=== PATIENT | female | born 1970 | race Caucasian/White ===

== ENCOUNTER → 2016-08-28 | Outpatient (CLI) | payer OTHER ==
[2016-08-28 15:36] LABS: Basophils # (A) 0.1 k/uL (0-0.2); Basophils % (A) 1 %; CH 32.4; CHCM 33.9; Eosinophils # (A) 0.1 k/uL (0-0.7); Eosinophils % (A) 1 %; HGB 14.6 gm/dL (11.4-16.0); Luc # (Auto) 0.23; Luc % (Auto) 2; Lymphocytes # (A) 2.6 k/uL (1.0-4.8); Lymphocytes % (A) 26 %; MCH 31.8 pg (25.0-35.0); MCHC 33.1 g/dL (31.0-37.0); MCV 96.1 fL (80.0-100.0); Mean Platelet Volume 6.9; Monocytes # (A) 0.5 k/uL (0-1.0); Monocytes % (A) 4 %; Neutrophils # (A) 6.7 k/uL (1.3-7.7); Neutrophils % (A) 66 %; RBC 4.59 m/uL (3.80-5.40); WBC 10.1 k/uL (3.8-10.6)
[2016-08-28 15:42] LABS: C Reactive Protein 9.9 mg/L (<10.0); Rheumatoid Factor, Qnt <9 IU/mL (<12)
[2016-08-28 20:25] LABS: Hemoglobin A1C 5.8 % (4.2-6.1)
[2016-08-28 21:17] LABS: Erythrocyte Sedimentation Rate 18 mm/hr (0-20)
[2016-08-29 02:24] LABS: ANA w/Reflex to Titer NEGATIVE (NEGATIVE)
[2016-08-29 03:42] LABS: Lyme Antibodies Total(IgG/IgM) 0.06 (<0.90)
[2016-08-29 05:34] LABS: Toxoplasma Antibody (IgG) <3.0 IU/mL (<7.2)
[2016-08-29 07:26] LABS: Treponemal Ab Reactive (Non-Reactive)
[2016-08-29 12:21] LABS: HLA B27 NEGATIVE; HLA B27 Comment SEEBELOW
[2016-08-29 13:36] LABS: C-ANCA <1:20 Titer (<1:20); P-ANCA <1:20 Titer (<1:20)
[2016-08-30 08:06] LABS: HIV-1/HIV-2 Ab Screen NONREAC (NON REAC)
[2016-09-02 19:38] LABS: Lysozyme, Serum or Body Fluid 7.8 mcg/mL (5.0-11.0)
== END | disposition home or self-care (01) ==
LOC: LABWHC1 14:59
PROVIDERS: ATTEND Ophthalmology
DX: H20.9 Unspecified iridocyclitis (principal)
CPT/HCPCS: 36415; 82164; 83036; 85025; 85549; 85652; 86038; 86140; 86255; 86431; 86618; 86777; 86778; 86780; 86812; 87389

== ENCOUNTER 2017-11-06 18:55 | Emergency (ER) | payer OTHER ==
[2017-11-06] MEDS ORDERED: traMADol 50 MG STARTER PACK 3 TAB BTL PO STA (21:19)
--- NOTE | 2017-11-06 21:19 | ED ---
Skin/Abscess/FB HPI - General Chief complaint: Skin/Abscess/Foreign Body Stated complaint: Infection in wound/leg swelling Time Seen by Provider: 11/06/17 20:54 Source: patient Mode of arrival: ambulatory Limitations: no limitations - History of Present Illness Initial comments: 's patient is a 47-year-old woman who presents to be evaluated for a left pretibial leg injury that occurred about a month ago. She is concerned that there may be an infection that is developing at the wound and also is concerned because the stitches that were applied have been there for a month now. The patient states she was initially injured in a fall from a ladder. She was seen at [facility] where sutures were placed. She did not follow-up. The patient states that a total of 14 sutures were placed but that her daughter removed 3 of them. Patient denies fever or chills, palpitations chest pain or dyspnea. No leg pain or swelling. There has not really been much drainage. MD complaint: laceration Onset/Timin -: month(s) Tetanus Up to Date: yes Location: LLE Severity scale (1-10): 0 Improves with: none Worsens with: none Associated symptoms: denies other symptoms - Related Data Home Medications Medication Instructions Recorded Confirmed Acetaminophen [Tylenol Extra 1,000 mg PO Q6H PRN 11/06/17 11/06/17 Strength] Naproxen Sodium [Aleve] 440 mg PO BID PRN 11/06/17 11/06/17 Previous Rx's Medication Instructions Recorded Albuterol Inhaler [Ventolin Hfa 1 - 2 puff INHALATION Q6HR PRN #1 11/06/17 Inhaler] inhaler Sulfamethox-Tmp 800-160Mg [Bactrim 1 each PO Q12HR #14 tab 11/06/17 Ds] Allergies Allergy/AdvReac Type Severity Reaction Status Date / Time vancomycin Allergy Rash/Hives Verified 11/06/17 20:45 morphine AdvReac Nausea Verified 11/06/17 20:45 Review of Systems ROS Statement: Those systems with pertinent positive or pertinent negative responses have been documented in the HPI. ROS Other: All systems not noted in ROS Statement are negative. Constitutional: Denies: fever, chills Respiratory: Reports: wheezes. Denies: cough, dyspnea Cardiovascular: Denies: chest pain, palpitations Skin: Reports: as per HPI, change in color Past Medical History Past Medical History: No Reported History History of Any Multi-Drug Resistant Organisms: None Reported Past Surgical History: Breast Surgery, Cholecystectomy, Tubal Ligation Past Psychological History: Anxiety, Depression Smoking Status: Former smoker Past Alcohol Use History: None Reported Past Drug Use History: None Reported General Exam Limitations: no limitations General appearance: alert, in no apparent distress Cardiovascular Exam: Present: regular rate, normal rhythm Extremities exam: Present: other (Patient has an approximately 4-5 cm x 8-10 cm area of eschar where the laceration had occurred. There is a little bit of surrounding erythema but no warmth or any drainage.) Skin exam: Present: warm, dry, intact Course Vital Signs 11/06/17 19:07 Temperature 98.2 F Pulse Rate 98 Respiratory 18 Rate Blood Pressure 119/72 O2 Sat by Pulse 97 Oximetry Medical Decision Making - Medical Decision Making Patient is a 47-year-old woman who presents with concerns that she has had stitches in her leg for a month and also concerned about possible infection. Inspection of the leg does reveal some erythema but there is no warmth there is no purulent drainage, and it appears to be mainly inflammatory in nature. Having said that, patient will be prescribed Bactrim to use should there be any increase in redness, swelling or any purulent drainage or she notes any systemic symptoms including but not limited to fevers or chills, tachycardia etc. I also discussed further wound care. There is a moderate sized eschar that I recommended soaking and seeing if she is able to remove some of this to facilitate healing. I was able to remove 11 sutures, and the patient's daughter had removed 3 so this sounds like it is all the sutures that and placed. Patient also has had some wheezing and is out of her albuterol so this is refilled. Disposition Clinical Impression: Visit for suture removal, Wound infection, COPD (chronic obstructive pulmonary disease) Disposition: HOME SELF-CARE Condition: Good Instructions: Stitches Removal (ED), Wound Infection (ED), COPD (Chronic Obstructive Pulmonary Disease) (ED) Prescriptions: Albuterol Inhaler [Ventolin Hfa Inhaler] 1 - 2 puff INHALATION Q6HR PRN #1 inhaler PRN Reason: Wheezing Sulfamethox-Tmp 800-160Mg [Bactrim Ds] 1 each PO Q12HR #14 tab Is patient prescribed a controlled substance at d/c from ED?: No Referrals: None,Stated [Primary Care Provider] - 1-2 days
[2017-11-06 21:41] VITALS: BP 101/70; PULSE 74; RESP 19; TEMP 98.1
== END 2017-11-06 21:40 | disposition home or self-care (01) ==
LOC: EC 18:55
DX: Z04.1 Encounter for examination and observation following transport accident (principal); T81.4XXA Infection following a procedure, initial encounter; L08.9 Local infection of the skin and subcutaneous tissue, unspecified; J44.9 Chronic obstructive pulmonary disease, unspecified; Z87.891 Personal history of nicotine dependence; Z88.1 Allergy status to other antibiotic agents; Z88.5 Allergy status to narcotic agent
CPT/HCPCS: 99283

== ENCOUNTER 2019-03-30 15:13 | Emergency (ER) | payer OTHER ==
[2019-03-30 15:20] VITALS: TEMP 98.3
[2019-03-30] MEDS ORDERED: IPRATROPIUM-ALBUTEROL 3 ML NEB INHALATION STA (15:42)
--- NOTE | 2019-03-30 16:06 | ED ---
General Adult HPI - General Chief complaint: Upper Respiratory Infection Stated complaint: Cough Time Seen by Provider: 03/30/19 15:31 Source: patient, RN notes reviewed, old records reviewed Mode of arrival: ambulatory Limitations: no limitations - History of Present Illness Initial comments: 48-year-old female patient with past history of COPD presents to ED chief complaint of cough, mild shortness of breath the last 5 days. Patient reports that she believes that she has bronchitis. Patient denies any chest pain. Denies any recent prolonged travel. Denies any pain in legs. Denies a history of prior VTE. Denies any use of exogenous hormone products. Denies any other complaints. Systemic: Pt denies fatigue, fever/chills, rash. Pt denies weakness, night sweats, weight loss. Neuro: Pt denies headache, visual disturbances, syncope or pre-syncope. HEENT: Pt denies ocular discharge or irritation, otalgia, rhinorrhea, pharyngiti s or notable lymphadenopathy. Cardiopulmonary: Pt denies chest pain, heart palpitations, dyspnea on exertion. Abdominal/GI: Pt denies abdominal pain, n/v/d. : Pt denies dysuria, burning w/ urination, frequency/urgency. Denies new onset urinary or bowel incontinence. MSK: Pt denies myalgia, loss of strength or function in extremities. Neuro: Pt denies new onset weakness, paresthesias. - Related Data Home Medications Medication Instructions Recorded Confirmed Ibuprofen [Motrin] 800 mg PO Q8H PRN 12/30/17 03/27/18 Acetaminophen [Tylenol Extra 500 mg PO Q6HR PRN 01/07/18 03/27/18 Strength] Previous Rx's Medication Instructions Recorded Albuterol Inhaler [Ventolin Hfa 1 - 2 puff INHALATION Q6HR PRN #1 11/06/17 Inhaler] inhaler Albuterol Inhaler [Ventolin Hfa 1 - 2 puff INHALATION Q4-6H PRN #1 03/30/19 Inhaler] inhaler Albuterol Nebulized [Ventolin 2.5 mg INHALATION Q4H PRN 10 Days 03/30/19 Nebulized] nebu Azithromycin [Zithromax Z-pack] 0 mg PO DIRECTED #6 tab 03/30/19 predniSONE 50 mg PO DAILY #5 tab 03/30/19 Allergies Allergy/AdvReac Type Severity Reaction Status Date / Time vancomycin Allergy Rash/Hives Verified 03/30/19 15:20 morphine AdvReac Nausea Verified 03/30/19 15:20 Review of Systems ROS Statement: Those systems with pertinent positive or pertinent negative responses have been documented in the HPI. ROS Other: All systems not noted in ROS Statement are negative. Past Medical History Past Medical History: COPD, Skin Disorder Additional Past Medical History / Comment(s): WOUND LT LOWER LEG. History of Any Multi-Drug Resistant Organisms: None Reported Past Surgical History: Breast Surgery, Cholecystectomy, Tubal Ligation Additional Past Surgical History / Comment(s): BREAST BIOPSIES SHIRIN. SHIRIN CATARACTS REMOVED Past Anesthesia/Blood Transfusion Reactions: Family History of Problems w/ Anesthesia, Motion Sickness Additional Past Anesthesia/Blood Transfusion Reaction / Comment(s): SISTER HAD PARALYZED DIAPHRAGM. Past Psychological History: Anxiety, Depression Smoking Status: Current every day smoker Past Alcohol Use History: None Reported Past Drug Use History: Marijuana - Past Family History Mother Family Medical History: Cancer General Exam - General Exam Comments Initial Comments: Constitutional: NAD, AOX3, Pt has pleasant affect. HEENT: NC/AT, trachea midline, neck supple, no lymphadenopathy. Posterior p harynx non erythematous, without exudates. External ears appear normal, without discharge. Mucous membranes moist. Eyes PERRLA, EOM intact. There is no scleral icterus. No pallor noted. Cardiopulmonary: RRR, no murmurs, rubs or gallops, no JVD noted. Mild wheezing noted in anterior lung shaw. No peripheral edema. Abdominal exam: Abdomen soft and non-distended. Abdomen non-tender to palpation in all 4 quadrants. Bowel sounds active in LLQ. No hepatosplenomegaly. No ecchymosis Neuro: CN II-XII grossly intact. No nuchal rigidity. No raccon eyes, no borja sign, no hemotympanum. No cervical spinal tenderness. MSK: No posterior calf tenderness bilaterally, homans sign negative bilaterally. Posterior tibialis and radial pulse +2 bilaterally. Sensation intact in upper and lower extremities. Full active ROM in upper and lower extremities, 5/5 stregnth. Limitations: no limitations Course Vital Signs 03/30/19 03/30/19 03/30/19 15:18 16:33 16:34 Temperature 98.3 F Pulse Rate 111 H 100 78 Respiratory 20 18 Rate Blood Pressure 141/72 122/58 O2 Sat by Pulse 95 96 Oximetry Medical Decision Making - Medical Decision Making 28-year-old female patient past history of COPD presents ED chief complaint one week of cough, mild soreness of breath. Denies any chest pain. Denies any wrist fractures. PE. Denies any prior PE. Physical exam displayed mild wheezing left anterior lung shaw, result of breathing treatment. His x-ray revealed possible early developing pneumonia. Patient was discharged with breathing treatments, steroids, azithromycin. Will follow up with PCP tomorrow. Will return to ER if condition worsens. Case discussed with Dr. Dawson. Disposition Clinical Impression: Pneumonia, COPD (chronic obstructive pulmonary disease) Disposition: HOME SELF-CARE Condition: Stable Instructions (If sedation given, give patient instructions): Community Acquired Pneumonia (ED), COPD (Chronic Obstructive Pulmonary Disease) (ED) Additional Instructions: Follow-up with primary care provider tomorrow. Take medication as directed. Repeat chest x-ray after resolution of pneumonia to ensure that it resolves there is no underlying pathology. Return to ER if condition worsens. Prescriptions: predniSONE 50 mg PO DAILY #5 tab Albuterol Inhaler [Ventolin Hfa Inhaler] 1 - 2 puff INHALATION Q4-6H PRN #1 inhaler PRN Reason: Cough Albuterol Nebulized [Ventolin Nebulized] 2.5 mg INHALATION Q4H PRN 10 Days nebu PRN Reason: Cough Azithromycin [Zithromax Z-pack] 0 mg PO DIRECTED #6 tab Is patient prescribed a controlled substance at d/c from ED?: No Referrals: Chandni Maurice MD [Primary Care Provider] - 1-2 days
--- NOTE | 2019-03-30 16:11 | XR ---
EXAMINATION TYPE: XR chest 2V DATE OF EXAM: 03/30/2019 COMPARISON: 01/10/2009 HISTORY: 48-year-old female with cough TECHNIQUE: PA and lateral views FINDINGS: Heart normal size. Aorta and pulmonary vasculature within normal limits. There is some focal opacity at the right midlung. Mild hyperinflation. No or additional consolidation or pleural effusion. IMPRESSION: 1. Mild hyperinflation may reflect depth of inspiration or underlying emphysema. 2. Focal right midlung density could represent an early pneumonia. 3. Follow-up after treatment to ensure clearance especially if the patient has a smoking history.
[2019-03-30] MEDS ORDERED: AZITHROMYCIN 500 MG TAB PO STA (16:18)
[2019-03-30 16:36] VITALS: BP 122/58; PULSE 78; RESP 18
== END 2019-03-30 16:56 | disposition home or self-care (01) ==
LOC: EC 15:13
DX: J44.0 Chronic obstructive pulmonary disease with (acute) lower respiratory infection (principal); J18.9 Pneumonia, unspecified organism; F17.200 Nicotine dependence, unspecified, uncomplicated; Z88.1 Allergy status to other antibiotic agents; Z88.5 Allergy status to narcotic agent
CPT/HCPCS: 71046; 94640; 99284

== ENCOUNTER → 2019-05-01 | Outpatient (CLI) | payer OTHER ==
--- NOTE | 2019-05-01 13:26 | CT ---
EXAMINATION TYPE: CT chest w con DATE OF EXAM: 05/01/2019 COMPARISON: Chest x-ray March 30, 2019 HISTORY: Abnormal cxr. CT DLP: 267.6 mGycm. Automated Exposure Control for Dose Reduction was Utilized. TECHNIQUE: CT scan of the thorax is performed following with IV Contrast, patient injected with 100 mL of Isovue 300. FINDINGS: LUNGS:, Mild to moderate underlying emphysematous change. No suspicious consolidation. No pleural eff usion or pneumothorax. No suspicious nodules or masses with particular attention to the right mid nori g and area of x-ray concern. MEDIASTINUM: There are no greater than 1 cm hilar or mediastinal lymph nodes. No cardiomegaly or pe ricardial effusion is seen. Coronary artery calcification is present which is noted marked of underly ing coronary artery disease. OTHER: Cholecystectomy clips are noted. Mild multilevel spurring in the spine. Spine is straightened. IMPRESSION: Mild to moderate emphysematous change without residual acute pulmonary process. No suspic ious nodules.
== END | disposition home or self-care (01) ==
LOC: RADCTMAIN 12:36
PROVIDERS: ATTEND Internal Medicine
DX: J43.9 Emphysema, unspecified (principal)
CPT/HCPCS: 71260; Q9967

== ENCOUNTER → 2019-05-14 | Outpatient (CLI) | payer OTHER ==
--- NOTE | 2019-05-14 23:34 | MR ---
EXAMINATION TYPE: MR cervical spine wo con DATE OF EXAM: 05/14/2019 COMPARISON: 11/10/2014 HISTORY: Neck pain into kaela arms Multiplanar multiecho imaging of the cervical spine was performed without contrast. There is some straightening of the cervical vertebra. There is decreased signal and loss of height of the disks at C3-4 and C4-5 and C5-6. There is some fusion of the C6-7 disc. There is spurring of the endplates anteriorly and posteriorly from C3 to C6. Cervical spinal cord shows no edema. There is a mild relative spinal stenosis at C4-5. The canal measures 7 mm. Brainstem appears intact. There are p osterior mild disc herniations at C4-5 and C5-6. I see no focal bone destruction. IMPRESSION: Spondylotic changes at multiple levels. There is 7 mm spinal stenosis at C4-5. Mild posterior disc he rniations at C4-5 and C5-6. No significant change compared to old exam.
== END | disposition home or self-care (01) ==
LOC: RADMRIMAIN 21:52
PROVIDERS: ATTEND Psychiatry & Neurology Neurology
DX: M48.02 Spinal stenosis, cervical region (principal); M50.221 Other cervical disc displacement at C4-C5 level
CPT/HCPCS: 72141

== ENCOUNTER → 2019-06-01 | Outpatient (CLI) | payer OTHER ==
--- NOTE | 2019-06-01 22:40 | MR ---
EXAMINATION TYPE: MR brain wo con DATE OF EXAM: 06/01/2019 COMPARISON: CT brain December 16, 2007 HISTORY: Bilateral occipital neuralgia, hx of head injury TECHNIQUE: Multiplanar, multisequence imaging of the brain and brainstem is performed without IV cont rast. FINDINGS: Diffusion weighted images demonstrate no evidence of a recent infarct or other diffusion abnormality. There is no extraaxial fluid collection or significant white matter signal abnormality. The ventricu lar system and cisternal spaces are normal in size and appearance. The brain volume is age appropria te. T2*weighted images show no suspicious intraparenchymal blood products. Midline structures demonstrate normal morphology. The craniocervical junction appears within normal limits. Normal vascular flow voids are present. Note is made of absent or hypoplastic right A1 segmen t with filling of A2 segment due to patent anterior communicating artery, normal variant. Some artifa ct distortion and anterior aspect of bilateral globes. Visualized paranasal sinuses show mild mucosal thickening of ethmoid sinuses bilaterally most prominent anteriorly otherwise are clear. IMPRESSION: Mild anterior chronic ethmoid sinus disease otherwise fairly unremarkable study.
== END | disposition home or self-care (01) ==
LOC: RADMRIMAIN 16:48
PROVIDERS: ATTEND Psychiatry & Neurology Neurology
DX: M54.81 Occipital neuralgia (principal)
CPT/HCPCS: 70551

== ENCOUNTER → 2019-06-10 | Outpatient (CLI) | payer OTHER ==
--- NOTE | 2019-06-11 16:55 | MM ---
Reason for exam: screening (asymptomatic). Last mammogram was performed 10 years and 4 months ago. History: Excisional biopsy of both breasts, August 07, 2006. Benign excisional biopsy of both breasts, 1991. Physical Findings: A clinical breast exam by your physician is recommended on an annual basis and results should be correlated with mammographic findings. MG Screening Mammo w CAD Bilateral CC and MLO view(s) were taken. Prior study comparison: February 15, 2009, bilateral diagnostic digital mammog. March 07, 2006, bilateral screening mammogram w/CAD. There are scattered fibroglandular densities. No significant changes when compared with prior studies. ASSESSMENT: Benign, BI-RAD 2 RECOMMENDATION: Routine screening mammogram of both breasts in 1 year.
== END | disposition home or self-care (01) ==
LOC: RADMAMWWP 13:50
PROVIDERS: ATTEND Internal Medicine
DX: Z12.31 Encounter for screening mammogram for malignant neoplasm of breast (principal)
CPT/HCPCS: 77067

== ENCOUNTER → 2020-10-19 | Outpatient (CLI) | payer OTHER ==
--- NOTE | 2020-10-20 12:40 | MM ---
Reason for exam: screening (asymptomatic). Last mammogram was performed 1 year and 4 months ago. History: Patient is postmenopausal. Excisional biopsy of both breasts, August 07, 2006. Benign excisional biopsy of both breasts, 1991. Physical Findings: A clinical breast exam by your physician is recommended on an annual basis and results should be correlated with mammographic findings. MG Screening Mammo w CAD Bilateral CC and MLO view(s) were taken. Prior study comparison: June 10, 2019, bilateral MG screening mammo w CAD. February 15, 2009, bilateral diagnostic digital mammog. There are scattered fibroglandular densities. ASSESSMENT: Negative, BI-RAD 1 RECOMMENDATION: Routine screening mammogram of both breasts in 1 year.
== END | disposition home or self-care (01) ==
LOC: RADMAMWWP 13:55
PROVIDERS: ATTEND Internal Medicine
DX: Z12.31 Encounter for screening mammogram for malignant neoplasm of breast (principal); Z78.0 Asymptomatic menopausal state
CPT/HCPCS: 77067

== ENCOUNTER → 2020-12-04 | Outpatient (CLI) | payer OTHER ==
[~2020-12-04] MED LIST: REGADENOSON 0.4 MG/5 ML SYRINGE IV ONE
--- NOTE | 2020-12-04 14:48 | EST ---
EXERCISE STRESS DATE OF SERVICE: AGE: 50 SEX: F HT: 4'10" WT: 150 lbs. PROTOCOL: Lexiscan STAGE: NA DURATION OF EXERCISE: NA HEART RATE REST: 77 BLOOD PRESSURE REST: 128/73 MAXIMUM HEART RATE ACHIEVED: 105 MAXIMUM BLOOD PRESSURE: 132/70 85% MPHR: 144 100% MPHR: 169 METS: NA RESULTS: Baseline rhythm sinus mechanism rate 77, normal axis and intervals, QS in V1 to V2. Baseline blood pressure 128/73 mmHg. Patient received injection of Lexiscan. Electrocardiograph monitoring revealed no evidence of diagnostic ischemic ST deviation. Cardiolite was injected per protocol. CONCLUSION: 1. Nondiagnostic electrocardiograph stress testing. 2. Nuclear images will be reported separately. MMODL / IJN: [id number] /
--- NOTE | 2020-12-04 14:49 | NM ---
EXAMINATION TYPE: NM stress lexiscan cardiolite DATE OF EXAM: 12/04/2020 COMPARISON: NONE HISTORY: 50-year-old female with chest pain TECHNIQUE: After the intravenous administration of 9.8 mCi Tc 99m Sestamibi - Cardiolite resting SPE CT images acquired 67 minutes post injection. The patient received 0.4mg Lexiscan, 25.7 mCi Tc 99m Sestamibi - Stress images obtained [address] injection FINDINGS: Review of stress and rest SPECT images demonstrates fixed perfusion defect along the mid to apical in ferolateral wall. On stress, there is accentuation of this defect extending up to the lateral basal w all. Gated analysis shows decreased augmentation of the lateral wall. Estimated left ventricular ejec tion fraction is borderline diminished at 53%. TID calculated at 1.0, within normal limits. IMPRESSION: 1. 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 3. Borderline diminished LVEF of 53%.
== END | disposition home or self-care (01) ==
LOC: RADNMMAIN 08:07
PROVIDERS: ATTEND Internal Medicine
DX: R07.9 Chest pain, unspecified (principal)
CPT/HCPCS: 93017; 78452; A9500

== ENCOUNTER → 2021-02-05 | Outpatient (CLI) | payer OTHER ==
[2021-02-05 15:22] LABS: HCT 47.8 % (37.2-46.3); HGB 15.4 g/dL (12.0-15.0); MCH 32.2 pg (27.0-32.0); MCHC 32.2 g/dL (32.0-37.0); MCV 99.8 fL (80.0-97.0); Mean Platelet Volume 10.2 fL (9.5-12.2); Platelet Count 237 X 10*3/uL (140-440); RBC 4.79 X 10*6/uL (4.10-5.20); RDW 13.7 % (11.5-14.5); WBC 8.69 X 10*3/uL (4.50-10.00)
[2021-02-05 15:58] LABS: African American GFR (CKD) 112.4 (60.0-200.0); Anion Gap 11.8 mmol/L (4.00-12.00); Blood Urea Nitrogen 15.4 mg/dL (9.0-27.0); Carbon Dioxide 26.3 mmol/L (21.6-31.8); Chol/HDL Ratio 4.14 Ratio; HDL Cholesterol 48.5 mg/dL (40.00-60.00); LDL Cholesterol,Calculated 131.9 mg/dL (0.0-131.0); Potassium 4.8 mmol/L (3.5-5.5); VLDL Calculation 20.6 mg/dL (5.00-40.00)
== END | disposition home or self-care (01) ==
LOC: LABWHC1 10:21
PROVIDERS: ATTEND Internal Medicine Cardiovascular Disease
DX: E78.2 Mixed hyperlipidemia (principal)
CPT/HCPCS: 36415; 80051; 80061; 82565; 84450; 84460; 84520; 85027

== ENCOUNTER 2021-02-08 11:04 | Day surgery (SDC) | payer OTHER ==
[2021-02-06 11:41] VITALS: BMI 31.7
[~2021-02-08 11:04] MED LIST changes: +ALPRAZolam 0.25 MG TAB PO PRN; +ALPRAZolam 0.5 MG TAB PO PRN; +ASPIRIN 325 MG TAB PO STA; +ATORVASTATIN 80 MG TAB PO STA; +NITROGLYCERIN SL TABS 0.4 MG TAB SUBLINGUAL PRN; -REGADENOSON 0.4 MG/5 ML SYRINGE IV ONE; +SODIUM CHLORIDE 0.9% 1,000 ML in EMPTY BAG 1 BAG IV SCH
[2021-02-08] MEDS ORDERED: fentaNYL (PF) 50 MCG/ML 2 ML AMP ONE (11:46)
[2021-02-08] MEDS: fentaNYL (PF) 50 MCG/ML 2 ML AMP IV ONE ×2 (11:55→12:03)
[2021-02-08] MEDS ORDERED: MIDAZOLAM 2 MG/2 ML VIAL IV ONE (11:55)
[2021-02-08] MEDS ORDERED: LIDOCAINE 1% INJ 10MG/ML (20 ML MDV) SQ ONE (11:59)
[2021-02-08] MEDS ORDERED: HEPARIN SODIUM 1,000 UN/ML (10ML VL) ONE (12:08)
[2021-02-08] MEDS ORDERED: IOPAMIDOL-370 125ML BTL INJ ONE (12:19)
[2021-02-08] MEDS ORDERED: RX INFO: IV CONTRAST WAS GIVEN 1 EACH MISC MISCELLANE PRN (12:40)
[2021-02-08] MEDS ORDERED: SODIUM CHLORIDE 0.9% 1,000 ML IV SCH (12:45)
--- NOTE | 2021-02-08 13:30 | CC ---
CARDIAC CATHETERIZATION REPORT INDICATION: Chest pain with abnormal stress test showing partial anterolateral reversible perfusion defect. PROCEDURE NOTE: After obtaining informed consent, left heart catheterization and coronary angiogram were performed via the right femoral artery using standard Villa catheters. The patient tolerated the procedure well without any obvious immediate complications. A femoral angiogram was performed was made for manual hemostasis, as the site of entry is below the bifurcation. Patient received moderate conscious sedation. Total sedation time was 20 minutes. FINDINGS: HEMODYNAMICS: Left ventricular end-diastolic pressure is 8 mm. There is no significant gradient across the aortic valve. LEFT VENTRICULOGRAM: Left ventriculogram was not performed. ANGIOGRAPHIC DATA Left main coronary artery. Left main coronary artery is a normal-sized vessel and is free of stenosis. It divides into left anterior descending coronary artery and circumflex coronary artery. Circumflex coronary artery is totally occluded proximally with extensive collaterals from the distal right coronary artery. LAD shows mild nonobstructive disease. Right coronary artery is a large dominant vessel. There is a 40% stenosis involving distal right coronary artery. CONCLUSION: 1. Chronically occluded proximal circumflex coronary artery with extensive collaterals coming from the distal RCA. 2. Moderate disease involving right coronary artery. PLAN: Patient will be treated with optimal medical therapy with aspirin, nitrates, beta blockers, statin, and patient was advised to quit smoking. Will follow the patient closely clinically. She does not require percutaneous revascularization at this time. MMODL / IJN: [id number] /
[2021-02-08 19:28] VITALS: BP 114/73; PULSE 89; RESP 16; TEMP 98.3
== END 2021-02-08 19:53 ==
LOC: CATHCVL 11:04 → 6NMEDSUR 12:18 → CATHCVL 19:53
PROVIDERS: ATTEND Internal Medicine Cardiovascular Disease
DX: I25.110 Atherosclerotic heart disease of native coronary artery with unstable angina pectoris (principal); I25.82 Chronic total occlusion of coronary artery; R94.39 Abnormal result of other cardiovascular function study; F17.210 Nicotine dependence, cigarettes, uncomplicated; Z20.822 Contact with and (suspected) exposure to COVID-19; Z82.49 Family history of ischemic heart disease and other diseases of the circulatory system; Z90.49 Acquired absence of other specified parts of digestive tract; J44.9 Chronic obstructive pulmonary disease, unspecified; M19.90 Unspecified osteoarthritis, unspecified site; Z79.82 Long term (current) use of aspirin; Z79.899 Other long term (current) drug therapy; Z88.1 Allergy status to other antibiotic agents
CPT/HCPCS: 93458; 87635; C1769 ×2; C1894; J2250; J2001; J3010; Q9967

== ENCOUNTER → 2021-05-23 | Outpatient (CLI) | payer OTHER ==
--- NOTE | 2021-05-23 18:47 | XR ---
EXAMINATION TYPE: XR chest 2V DATE OF EXAM: 05/23/2021 COMPARISON: 03/30/2019 HISTORY: Pain TECHNIQUE: 2 views FINDINGS: Heart is normal. Lungs are clear of consolidation. There are no hilar masses. Costophrenic angles are clear. IMPRESSION: No active cardiopulmonary disease. No adverse change.
== END | disposition home or self-care (01) ==
LOC: RADXRMAIN 17:40
PROVIDERS: ATTEND Internal Medicine
DX: R07.9 Chest pain, unspecified (principal)
CPT/HCPCS: 71046

== ENCOUNTER 2021-12-01 16:14 | Inpatient (IN) | payer OTHER ==
[2021-12-01] MEDS ORDERED: IPRATROPIUM-ALBUTEROL 3 ML NEB INHALATION STA (16:22)
[2021-12-01 17:05] LABS: Basophils # (A) 0.1 k/uL (0-0.2); Basophils % (A) 1 %; Eosinophils # (A) 0.1 k/uL (0-0.7); Eosinophils % (A) 1 %; HCT 46.2 % (34.0-46.0); Hypochromasia Slight; Lymphocytes # (A) 1.3 k/uL (1.0-4.8); Lymphocytes % (A) 15 %; MCHC 32.6 g/dL (31.0-37.0); MCV 98.2 fL (80.0-100.0); Mean Platelet Volume 7.7; Monocytes # (A) 0.5 k/uL (0-1.0); Monocytes % (A) 7 %; Neutrophils # (A) 6.2 k/uL (1.3-7.7); Neutrophils % (A) 74 %; Platelet Count 278 k/uL (150-450); RDW 14.1 % (11.5-15.5); WBC 8.4 k/uL (3.8-10.6)
--- NOTE | 2021-12-01 17:06 | ED ---
SOB HPI - General Chief Complaint: Shortness of Breath Stated Complaint: CALIXTO Time Seen by Provider: 12/01/21 16:20 Source: patient Mode of arrival: ambulatory Limitations: no limitations - History of Present Illness Initial Comments: 51-year-old female past history of COPD on home oxygen, coronary artery disease without stenting resents the emergency room with shortness of breath for the past 4 days. States that her shortness of breath is exertional. Admits to green sputum production. No sick contacts. She denies chest pain. No fevers. Has been using her inhaler and nebulizer at home at least every 8 hours without any improvement in her symptoms. No nausea, vomiting or diarrhea. No other alleviating, precipitating or modifying factors - Related Data Home Medications Medication Instructions Recorded Confirmed Acetaminophen-Codeine 300-30mg 1 tab PO BID PRN 12/01/21 12/01/21 [Tylenol w/codeine #3] Albuterol Inhaler [Ventolin Hfa 2 puff INHALATION RT-Q6H PRN 12/01/21 12/01/21 Inhaler] Previous Rx's Medication Instructions Recorded Aspirin 81 mg PO DAILY tab 12/05/21 Atorvastatin [Lipitor] 40 mg PO DAILY tab 12/05/21 Cefdinir 300 mg PO Q12HR 7 Days #14 cap 12/05/21 Ipratropium-Albuterol Nebulize 3 ml INHALATION RT-QID each 12/05/21 [Duoneb 0.5 mg-3 mg/3 ml Soln] predniSONE 0 mg PO DIRECTED 12 Days #30 tab 12/05/21 Allergies Allergy/AdvReac Type Severity Reaction Status Date / Time vancomycin Allergy Rash/Hives Verified 12/01/21 18:15 morphine AdvReac Nausea Verified 12/01/21 18:15 Review of Systems ROS Statement: Those systems with pertinent positive or pertinent negative responses have been documented in the HPI. ROS Other: All systems not noted in ROS Statement are negative. Past Medical History Past Medical History: COPD, Skin Disorder Additional Past Medical History / Comment(s): WOUND LT LOWER LEG. History of Any Multi-Drug Resistant Organisms: None Reported Past Surgical History: Breast Surgery, Cholecystectomy, Tubal Ligation Additional Past Surgical History / Comment(s): BREAST BIOPSIES SHIRIN. SHIRIN CATARACTS REMOVED Past Anesthesia/Blood Transfusion Reactions: Family History of Problems w/ Anesthesia, Motion Sickness Additional Past Anesthesia/Blood Transfusion Reaction / Comment(s): SISTER HAD PARALYZED DIAPHRAGM. Past Psychological History: Anxiety, Depression Smoking Status: Former smoker Past Alcohol Use History: None Reported Past Drug Use History: Marijuana - Past Family History Mother Family Medical History: Cancer Father Family Medical History: Myocardial Infarction ([place]) General Exam Limitations: no limitations General appearance: alert, in no apparent distress Head exam: Present: atraumatic, normocephalic, normal inspection Eye exam: Present: normal appearance, PERRL, EOMI. Absent: scleral icterus, conjunctival injection, periorbital swelling ENT exam: Present: normal exam, mucous membranes moist Neck exam: Present: normal inspection. Absent: tenderness, meningismus, lymphadenopathy Respiratory exam: Present: wheezes, accessory muscle use, decreased breath sounds, other (tachypnia). Absent: respiratory distress, rales, rhonchi, stridor Cardiovascular Exam: Present: normal rhythm, tachycardia, normal heart sounds. Absent: systolic murmur, diastolic murmur, rubs, gallop, clicks GI/Abdominal exam: Present: soft, normal bowel sounds. Absent: distended, tenderness, guarding, rebound, rigid Extremities exam: Present: normal inspection, full ROM, normal capillary refill. Absent: tenderness, pedal edema, joint swelling, calf tenderness Back exam: Present: normal inspection Neurological exam: Present: alert, oriented X3, CN II-XII intact Psychiatric exam: Present: normal affect, normal mood Skin exam: Present: warm, dry, intact, normal color. Absent: rash Course Vital Signs 12/01/21 12/01/21 12/01/21 16:15 16:20 17:19 Temperature 98.3 F Pulse Rate 133 H 112 H Respiratory 28 H Rate Blood Pressure 110/55 O2 Sat by Pulse 86 L 96 Oximetry 12/01/21 12/01/21 12/01/21 17:30 17:55 19:54 Temperature Pulse Rate 115 H 109 H 110 H Respiratory 20 18 Rate Blood Pressure 117/66 123/60 O2 Sat by Pulse 96 97 Oximetry Medical Decision Making - Medical Decision Making Upon arrival patient was placed into room 3. She is hypoxic with an oxygen saturation of 86%. She is placed on 4 L. Placed on continuous pulse ox and cardiac monitoring. 12-lead EKG demonstrates a sinus tach. Laboratory studies are conducted. Patient given a DuoNeb breathing treatment and 125 mg Solu- Medrol. Laboratory studies reveal a mildly elevated troponin of 0.050. Covid and influenza are negative. Chest x-ray does demonstrate mild interstitial pneumonia. This is followed by a CT of the chest either elevated troponin, tachycardia and hypoxia which does not demonstrate PE. Patient is given a dose of Rocephin and azithromycin. Recommended admission for her hypoxia for which the patient did agree to. Spoke with Dr. Alves who is covering for Dr. Maurice. - Lab Data Result diagrams: 12/04/21 07:51 12/04/21 07:51 Lab Results 12/01/21 12/01/21 12/01/21 Range/Units 16:52 16:52 16:52 WBC 8.4 (3.8-10.6) k/uL RBC 4.70 (3.80-5.40) m/uL Hgb 15.0 (11.4-16.0) gm/dL Hct 46.2 H (34.0-46.0) % MCV 98.2 (80.0-100.0) fL MCH 32.0 (25.0-35.0) pg MCHC 32.6 (31.0-37.0) g/dL RDW 14.1 (11.5-15.5) % Plt Count 278 (150-450) k/uL MPV 7.7 Neutrophils % 74 % Lymphocytes % 15 % Monocytes % 7 % Eosinophils % 1 % Basophils % 1 % Neutrophils # 6.2 (1.3-7.7) k/uL Lymphocytes # 1.3 (1.0-4.8) k/uL Monocytes # 0.5 (0-1.0) k/uL Eosinophils # 0.1 (0-0.7) k/uL Basophils # 0.1 (0-0.2) k/uL Hypochromasia Slight PT 10.3 (9.0-12.0) sec INR 0.9 (<1.2) APTT 23.6 (22.0-30.0) sec Sodium 138 (137-145) mmol/L Potassium 4.0 (3.5-5.1) mmol/L Chloride 102 (98-107) mmol/L Carbon Dioxide 30 (22-30) mmol/L Anion Gap 6 mmol/L BUN 12 (7-17) mg/dL Creatinine 0.56 (0.52-1.04) mg/dL Est GFR (CKD-EPI)AfAm >90 (>60 ml/min/1.73 sqM) Est GFR (CKD-EPI)NonAf >90 (>60 ml/min/1.73 sqM) Glucose 141 H (74-99) mg/dL Plasma Lactic Acid Kuldip (0.7-2.0) mmol/L Calcium 9.0 (8.4-10.2) mg/dL Magnesium 1.7 (1.6-2.3) mg/dL Total Bilirubin 0.5 (0.2-1.3) mg/dL AST 18 (14-36) U/L ALT 18 (4-34) U/L Alkaline Phosphatase 109 (38-126) U/L Troponin I (0.000-0.034) ng/mL NT-Pro-B Natriuret Pep pg/mL Total Protein 6.7 (6.3-8.2) g/dL Albumin 3.6 (3.5-5.0) g/dL Coronavirus (PCR) (Not Detectd) Influenza Type A RNA (Not Detectd) Influenza Type B (PCR) (Not Detectd) 12/01/21 12/01/21 12/01/21 Range/Units 16:52 16:52 16:52 WBC (3.8-10.6) k/uL RBC (3.80-5.40) m/uL Hgb (11.4-16.0) gm/dL Hct (34.0-46.0) % MCV (80.0-100.0) fL MCH (25.0-35.0) pg MCHC (31.0-37.0) g/dL RDW (11.5-15.5) % Plt Count (150-450) k/uL MPV Neutrophils % % Lymphocytes % % Monocytes % % Eosinophils % % Basophils % % Neutrophils # (1.3-7.7) k/uL Lymphocytes # (1.0-4.8) k/uL Monocytes # (0-1.0) k/uL Eosinophils # (0-0.7) k/uL Basophils # (0-0.2) k/uL Hypochromasia PT (9.0-12.0) sec INR (<1.2) APTT (22.0-30.0) sec Sodium (137-145) mmol/L Potassium (3.5-5.1) mmol/L Chloride (98-107) mmol/L Carbon Dioxide (22-30) mmol/L Anion Gap mmol/L BUN (7-17) mg/dL Creatinine (0.52-1.04) mg/dL Est GFR (CKD-EPI)AfAm (>60 ml/min/1.73 sqM) Est GFR (CKD-EPI)NonAf (>60 ml/min/1.73 sqM) Glucose (74-99) mg/dL Plasma Lactic Acid Kuldip 1.0 (0.7-2.0) mmol/L Calcium (8.4-10.2) mg/dL Magnesium (1.6-2.3) mg/dL Total Bilirubin (0.2-1.3) mg/dL AST (14-36) U/L ALT (4-34) U/L Alkaline Phosphatase (38-126) U/L Troponin I 0.050 H* (0.000-0.034) ng/mL NT-Pro-B Natriuret Pep 1430 pg/mL Total Protein (6.3-8.2) g/dL Albumin (3.5-5.0) g/dL Coronavirus (PCR) (Not Detectd) Influenza Type A RNA (Not Detectd) Influenza Type B (PCR) (Not Detectd) 12/01/21 12/01/21 Range/Units 16:52 16:52 WBC (3.8-10.6) k/uL RBC (3.80-5.40) m/uL Hgb (11.4-16.0) gm/dL Hct (34.0-46.0) % MCV (80.0-100.0) fL MCH (25.0-35.0) pg MCHC (31.0-37.0) g/dL RDW (11.5-15.5) % Plt Count (150-450) k/uL MPV Neutrophils % % Lymphocytes % % Monocytes % % Eosinophils % % Basophils % % Neutrophils # (1.3-7.7) k/uL Lymphocytes # (1.0-4.8) k/uL Monocytes # (0-1.0) k/uL Eosinophils # (0-0.7) k/uL Basophils # (0-0.2) k/uL Hypochromasia PT (9.0-12.0) sec INR (<1.2) APTT (22.0-30.0) sec Sodium (137-145) mmol/L Potassium (3.5-5.1) mmol/L Chloride (98-107) mmol/L Carbon Dioxide (22-30) mmol/L Anion Gap mmol/L BUN (7-17) mg/dL Creatinine (0.52-1.04) mg/dL Est GFR (CKD-EPI)AfAm (>60 ml/min/1.73 sqM) Est GFR (CKD-EPI)NonAf (>60 ml/min/1.73 sqM) Glucose (74-99) mg/dL Plasma Lactic Acid Kuldip (0.7-2.0) mmol/L Calcium (8.4-10.2) mg/dL Magnesium (1.6-2.3) mg/dL Total Bilirubin (0.2-1.3) mg/dL AST (14-36) U/L ALT (4-34) U/L Alkaline Phosphatase (38-126) U/L Troponin I (0.000-0.034) ng/mL NT-Pro-B Natriuret Pep pg/mL Total Protein (6.3-8.2) g/dL Albumin (3.5-5.0) g/dL Coronavirus (PCR) Not Detected (Not Detectd) Influenza Type A RNA Not Detected (Not Detectd) Influenza Type B (PCR) Not Detected (Not Detectd) - EKG Data EKG Comments: EKG demonstrates sinus tachycardia with a rate of 118. AR interval 141. Dressing E4. QTC of 376. No acute ST segment elevation or depressions Disposition Clinical Impression: Elevated troponin, Tachycardia, COPD exacerbation, Hypoxia, CAP (community acq uired pneumonia) Disposition: ADMITTED IP TO THIS HOSP Condition: Stable Is patient prescribed a controlled substance at d/c from ED?: No Time of Disposition: 19:06 Decision to Admit Reason: Admit from EC Decision Date: 12/01/21 Decision Time: 19:06
[2021-12-01 17:15] LABS: INR 0.9 (<1.2); Partial Thromboplastin Time 23.6 sec (22.0-30.0); Prothrombin Time 10.3 sec (9.0-12.0)
[2021-12-01 17:17] LABS: ALT 18 U/L (4-34); AST 18 U/L (14-36); African American GFR (CKD) >90 (>60 ml/min/1.73 sqM); Albumin 3.6 g/dL (3.5-5.0); Alkaline Phosphatase 109 U/L (38-126); Anion Gap 6 mmol/L; Blood Urea Nitrogen 12 mg/dL (7-17); Carbon Dioxide 30 mmol/L (22-30); Chloride 102 mmol/L (98-107); Glucose 141 mg/dL (74-99); Magnesium 1.7 mg/dL (1.6-2.3); Non-African American GFR(CKD) >90 (>60 ml/min/1.73 sqM); Sodium 138 mmol/L (137-145); Total Bilirubin 0.5 mg/dL (0.2-1.3); Total Protein 6.7 g/dL (6.3-8.2)
--- NOTE | 2021-12-01 17:17 | XR ---
EXAMINATION TYPE: XR chest 2V DATE OF EXAM: 12/01/2021 COMPARISON: NONE HISTORY: Difficulty breathing TECHNIQUE: 2 views FINDINGS: Heart is normal. There is some coarsening of interstitial markings in the lower lung shaw . There are no hilar masses. Bony thorax is intact. IMPRESSION: There is some mild interstitial pneumonia in the lower lung shaw which appears new comp ared to old exam. Normal heart..
[2021-12-01] MEDS ORDERED: ACETAMINOPHEN TAB 500 MG TAB PO STA (17:38)
--- NOTE | 2021-12-01 18:53 | CT ---
EXAMINATION TYPE: CT chest angio for PE DATE OF EXAM: 12/01/2021 COMPARISON: 05/01/2019 HISTORY: SOB x few days CT DLP: 373.2 mGycm Automated exposure control for dose reduction was used. CONTRAST: Performed with IV Contrast, patient injected with 90 mL of Isovue 370. There are Three-D postprocessed images. There are some coarse reticular interstitial and nodular infiltrate in the mid and lower lung shaw. This is more noticeable in the lingula left upper lobe. Heart size is normal. No pericardial effusio n. There is no mediastinal adenopathy. Thoracic aorta is intact. No aneurysm. There is no evidence of filling defect in the pulmonary arteries. No pleural effusion. Thoracic spine is intact. No compression fracture. IMPRESSION: No evidence of pulmonary embolism. No aortic aneurysm or dissection. Patchy reticular nodular pulmonary infiltrates which are new compared to old exam. This is consistent with inflammatory disease.
[2021-12-01] MEDS ORDERED: cefTRIAXone IN SWFI 1,000 MG/10 ML SYRINGE IVP STA (19:03)
[2021-12-01] MEDS ORDERED: AZITHROMYCIN 500 MG in SODIUM CHLORIDE 0.9% 250 ML IVPB STA (19:04)
[2021-12-01] MEDS ORDERED: methylPREDNISolone SOD SUCCI 125 MG/2 ML VIAL IV STA (19:08)
[2021-12-01] MEDS ORDERED: NALOXONE 0.4 MG/ML 1 ML VIAL IV PRN (19:09)
[2021-12-01] MEDS ORDERED: IBUPROFEN 400 MG TAB PO PRN (19:09)
[2021-12-01] MEDS ORDERED: IPRATROPIUM-ALBUTEROL 3 ML NEB INHALATION PRN (19:35)
[2021-12-01] MEDS ORDERED: IPRATROPIUM-ALBUTEROL 3 ML NEB INHALATION SCH (20:00)
[2021-12-01] MEDS: IPRATROPIUM-ALBUTEROL 3 ML NEB INHALATION SCH (20:05)
[2021-12-01] MEDS ORDERED: Acetaminophen-Codeine 300-30mg TAB PO PRN (22:28)
[2021-12-01] MEDS: methylPREDNISolone SOD SUCCI 40 MG/ML 1 ML VIAL IV SCH (23:44)
[2021-12-02 06:11] LABS: Glucose,Whole Blood 173 mg/dL (70-110)
[2021-12-02] MEDS: IPRATROPIUM-ALBUTEROL 3 ML NEB INHALATION SCH ×4 (07:55→19:37)
[2021-12-02 07:58] LABS: Basophils % (A) 0 %; Eosinophils % (A) 0 %; HGB 15.7 gm/dL (11.4-16.0); Hypochromasia Moderate; Lymphocytes # (A) 0.6 k/uL (1.0-4.8); Lymphocytes % (A) 8 %; MCH 31.6 pg (25.0-35.0); MCHC 31.4 g/dL (31.0-37.0); MCV 100.5 fL (80.0-100.0); Macrocytosis Slight; Mean Platelet Volume 7.2; Monocytes # (A) 0.2 k/uL (0-1.0); Monocytes % (A) 2 %; Neutrophils # (A) 6.1 k/uL (1.3-7.7); Neutrophils % (A) 88 %; Platelet Count 282 k/uL (150-450); RBC 4.97 m/uL (3.80-5.40); RDW 13.9 % (11.5-15.5)
[2021-12-02 08:25] LABS: African American GFR (CKD) >90 (>60 ml/min/1.73 sqM); Anion Gap 7 mmol/L; Blood Urea Nitrogen 14 mg/dL (7-17); Calcium 8.9 mg/dL (8.4-10.2); Carbon Dioxide 33 mmol/L (22-30); Chloride 101 mmol/L (98-107); Glucose 153 mg/dL (74-99); Non-African American GFR(CKD) >90 (>60 ml/min/1.73 sqM); Sodium 141 mmol/L (137-145)
[2021-12-02 08:29] LABS: Potassium 5.1 mmol/L (3.5-5.1)
[2021-12-02] MEDS: ACETAMINOPHEN TAB 325 MG TAB PO PRN (08:58)
[2021-12-02] MEDS: methylPREDNISolone SOD SUCCI 40 MG/ML 1 ML VIAL IV SCH ×2 (08:59→16:34)
[2021-12-02] MEDS: AZITHROMYCIN 500 MG TAB PO SCH (11:32)
[2021-12-02 11:48] LABS: Glucose,Whole Blood 191 mg/dL (70-110)
--- NOTE | 2021-12-02 12:30 | P.CNPUL ---
History of Present Illness Consult date: 12/02/21 Requesting physician: Maria E Berry Reason for consult: dyspnea Chief complaint: Shortness of breath History of present illness: 51-year-old white female patient with past medical history of COPD, former smoker, anxiety, depression, coronary artery disease without stenting who presented to the emergency department on 12/01/2021 with 4 day history of worsening shortness of breath. Her shortness of breath was mainly exertional, she reports cough and some green sputum production. She denies any sick contacts, she denies any chest discomfort, no fever or chills. Patient has been using her inhaler and nebulizer at home without any improvement. Chest x-ray in the emergency department showed mild interstitial pneumonia in the lower shaw. Patient tested negative for COVID-19, influenza A and B, white blood cell count was normal at 8.4, hemoglobin was 15.0, coagulation profile was unremarkable, electrolyte and renal profile were within normal limits, patient had a mild troponin leak at 0.050, 0.036, and 0.020, proBNP was 1430. Her pro-calcitonin level resulted at 0.23. Patient was started on empiric antibiotics with azithromycin and Rocephin in the emergency department, she was placed on breathing treatments and IV steroids. She is satting 95% on 3 L, she is afebrile with stable vital signs. CTA chest showed no evidence of pulmonary embolism, no aortic aneurysm or dissection, patchy reticular nodular pulmonary infiltrates. Review of Systems All systems: negative Constitutional: Denies chills, Denies fever Eyes: denies blurred vision, denies pain Ears, nose, mouth and throat: Denies headache, Denies sore throat Cardiovascular: Denies chest pain, Denies shortness of breath Respiratory: Reports cough with sputum, Reports dyspnea, Denies cough Gastrointestinal: Denies abdominal pain, Denies diarrhea, Denies nausea, Denies vomiting Genitourinary: Denies dysuria, Denies hematuria Musculoskeletal: Denies myalgias Integumentary: Denies pruritus, Denies rash Neurological: Denies numbness, Denies weakness Psychiatric: Denies anxiety, Denies depression Endocrine: Denies fatigue, Denies weight change Past Medical History Past Medical History: COPD, Skin Disorder Additional Past Medical History / Comment(s): WOUND LT LOWER LEG. History of Any Multi-Drug Resistant Organisms: None Reported Past Surgical History: Breast Surgery, Cholecystectomy, Tubal Ligation Additional Past Surgical History / Comment(s): BREAST BIOPSIES SHIRIN. SHIRIN CATARACTS REMOVED Past Anesthesia/Blood Transfusion Reactions: Family History of Problems w/ Anesthesia, Motion Sickness Additional Past Anesthesia/Blood Transfusion Reaction / Comment(s): SISTER HAD PARALYZED DIAPHRAGM. Past Psychological History: Anxiety, Depression Smoking Status: Former smoker Past Alcohol Use History: None Reported Past Drug Use History: Marijuana - Past Family History Mother Family Medical History: Cancer Father Family Medical History: Myocardial Infarction ([place]) Medications and Allergies Home Medications Medication Instructions Recorded Confirmed Type Acetaminophen-Codeine 300-30mg 1 tab PO BID PRN 12/01/21 12/01/21 History [Tylenol w/codeine #3] Albuterol Inhaler [Ventolin Hfa 2 puff INHALATION RT-Q6H PRN 12/01/21 12/01/21 History Inhaler] Allergies Allergy/AdvReac Type Severity Reaction Status Date / Time vancomycin Allergy Rash/Hives Verified 12/01/21 18:15 morphine AdvReac Nausea Verified 12/01/21 18:15 Physical Exam Vitals: Vital Signs Temp Pulse Pulse Resp BP BP Pulse Ox 12/02/21 11:44 98.3 F 87 99/64 95 12/02/21 11:39 84 12/02/21 11:26 84 12/02/21 08:08 82 12/02/21 07:57 97.8 F 99 16 99/61 97 12/02/21 07:55 80 12/02/21 03:44 97.8 F 100 22 113/74 95 12/01/21 23:41 97.8 F 98 18 108/68 100 12/01/21 21:48 107/70 12/01/21 20:55 97.6 F 106 H 22 91/60 97 12/01/21 19:54 110 H 18 123/60 97 12/01/21 17:55 109 H 20 117/66 96 12/01/21 17:30 115 H 12/01/21 17:19 112 H 12/01/21 16:20 96 12/01/21 16:15 98.3 F 133 H 28 H 110/55 86 L Intake and Output 12/01/21 12/02/21 12/02/21 22:59 06:59 14:59 Intake Total 490 Balance 490 Intake: Intake, IV Titration 250 Amount Azithromycin 500 mg In 250 Sodium Chloride 0.9% 250 ml @ 250 mls/hr IVPB ONCE STA Rx#:[id number] Oral 240 Other: # Voids 2 Weight 63.503 kg 64.5 kg GENERAL EXAM: Alert, very pleasant, 51-year-old white female, on 3 L of oxygen pulse ox is 97% comfortable in no apparent distress. HEAD: Normocephalic/atraumatic. EYES: Normal reaction of pupils, equal size. Conjunctiva pink, sclera white. NOSE: Clear with pink turbinates. THROAT: No erythema or exudates. NECK: No masses, no JVD, no thyroid enlargement, no adenopathy. CHEST: No chest wall deformity. Symmetrical expansion. LUNGS: Equal air entry with diffuse rhonchi CVS: Regular rate and rhythm, normal S1 and S2, no gallops, no murmurs, no rubs ABDOMEN: Soft, nontender. No hepatosplenomegaly, normal bowel sounds, no guarding or rigidity. EXTREMITIES: No clubbing, no edema, no cyanosis, 2+ pulses and upper and lower extremities. MUSCULOSKELETAL: Muscle strength and tone normal. SPINE: No scoliosis or deformity SKIN: No rashes CENTRAL NERVOUS SYSTEM: Alert and oriented -3. No focal deficits, tone is normal in all 4 extremities. PSYCHIATRIC: Alert and oriented -3. Appropriate affect. Intact judgment and insight. Results - Laboratory Findings CBC and BMP: 12/02/21 07:31 12/02/21 07:31 PT/INR, D-dimer PT 10.3 sec (9.0-12.0) 12/01/21 16:52 INR 0.9 (<1.2) 12/01/21 16:52 Abnormal lab findings: Abnormal Labs 12/01/21 12/01/21 12/01/21 16:52 16:52 16:52 Hct 46.2 H MCV Lymphocytes # Carbon Dioxide Creatinine Glucose 141 H POC Glucose (mg/dL) Troponin I 0.050 H* Procalcitonin 12/01/21 12/01/21 12/02/21 20:12 22:27 06:09 Hct MCV Lymphocytes # Carbon Dioxide Creatinine Glucose POC Glucose (mg/dL) 173 H Troponin I 0.036 H* Procalcitonin 0.23 H 12/02/21 12/02/21 12/02/21 07:31 07:31 11:46 Hct 50.0 H MCV 100.5 H Lymphocytes # 0.6 L Carbon Dioxide 33 H Creatinine 0.45 L Glucose 153 H POC Glucose (mg/dL) 191 H Troponin I Procalcitonin - Diagnostic Findings Chest x-ray: report reviewed, image reviewed CT scan - chest: report reviewed, image reviewed Assessment and Plan Plan: Assessment: #1. Acute on chronic dyspnea possibly related to acute community acquired pneumonia or acute pneumonitis, chest x-ray showing mild interstitial pneumonia, CTA chest showed patchy reticular nodular pulmonary infiltrates. COVID-19, influenza A and B were negative. Pulmonary embolism was ruled out #2. Mild troponin leak, CTA chest showed no evidence of pulmonary embolism #3. Chronic hypoxic respiratory failure on home oxygen #4. History of advanced COPD #5. Anxiety/depression #6. Former smoker #7. History of coronary artery disease Plan: Continue azithromycin and Rocephin Sputum for culture Legionella urine antigen Continue nebulized bronchodilators and IV steroids Cardiology recommendations We'll continue to follow I have personally seen and examined the patient, performed the documentation and the assessment and plan as written. Number of minutes spent on the visit: [15] Time with Patient: Greater than 30
--- NOTE | 2021-12-02 14:44 | HP ---
HISTORY AND PHYSICAL CHIEF COMPLAINT: Shortness of breath. HISTORY OF PRESENT ILLNESS: This 51-year-old woman with a past medical history of COPD and multiple medical problems, being followed by Dr. Maurice in the outpatient setting, was not feeling well over the past several days. Shortness of breath increased for the last 4 days, mostly exertional. The patient also had some green sputum. The patient came to [facility] and was evaluated. The patient was also tachycardic. Chest x-ray, which was reviewed personally by me, showed suspicious pneumonia on both lower lung shaw. A CT of the chest was also done, which was reviewed personally by me. It showed no evidence of any pulmonary embolism. The patient is started on broad-spectrum IV antibiotics. Pulmonary consultation with Dr. Zurita is also underway. There is no history of any fever, rigor or chills. PAST MEDICAL HISTORY: History of COPD, multiple medical issues. HOME MEDICATIONS: Albuterol. ALLERGIES: Allergies are reviewed and INCLUDE VANCOMYCIN, MORPHINE. REVIEW OF SYSTEMS: Fourteen-point review of systems negative except as mentioned earlier. PHYSICAL EXAMINATION: Pulse is 87, blood pressure 99/64, respiration 20, pulse ox 94% on 3 L. HEENT: Conjunctivae normal. NECK: No jugular venous distention. CARDIOVASCULAR: S1, S2 muffled. RESPIRATION: Breathing efforts increased. Bilateral scattered rhonchi and expiratory wheezing. ABDOMEN: Soft, nontender. LEGS: No edema. No swelling. NERVOUS SYSTEM: No focal deficit. LABS: WBC 7. Sodium 141, potassium 5.1. ASSESSMENT: 1. Chronic obstructive pulmonary disease, acute exacerbation. 2. Acute bilateral pneumonia. 3. History of wound, left lower leg. 4. History of breast surgery. 5. History of anxiety, depression. 6. Remote history of nicotine dependence. 7. Multiple medical issues. RECOMMENDATIONS AND DISCUSSION: In this 51-year-old woman who presented with multiple complex medical issues, we will monitor the patient closely. Intensive bronchodilators, IV steroids and empiric antibiotics. Resume the home medications. Prognosis is guarded. Dr. Maurice will follow tomorrow. Further recommendations to follow. See orders for details. MMODL / IJN: [id number] /
--- NOTE | 2021-12-02 15:36 | P.CRDCN ---
History of Present Illness History of present illness: HISTORY OF PRESENTING ILLNESS Patient is pleasant 51-year-old female with history of prior tobacco abuse quit 1 month ago, COPD, CAD with CT of the circumflex as well as moderate disease of the RCA, hyperlipidemia, family history of CAD who presents secondary to shortness breath. Patient previously was followed with Dr. Leal once and had heart catheterization however never followed up after that. She has been having increased shortness breath as well as cough over last 4 days and admits her daughter also has had a cough. Denies any chest pain or pressure. Denies any lightheadedness or dizziness. She did have heart catheterization 02/08/2021 which showed 40% RCA stenosis, ACID TANK CLEANER of the circumflex with extensive collaterals and only mild disease of the LAD. EKG shows sinus rhythm with normal axis. Chest CTA showed no PE, patchy infiltrates consistent with inflammatory disease. Troponin noted the 0.05, 0.03, 0.02. REVIEW OF SYSTEMS At the time of my exam: CONSTITUTIONAL: Denies fever or chills. CARDIOVASCULAR: Denies chest pain, +shortness of breath, no orthopnea, PND or palpitations. RESPIRATORY: Denies cough. GASTROINTESTINAL: Denies abdominal pain, diarrhea, constipation, nausea or vomiting. MUSCULOSKELETAL: Denies myalgias. NEUROLOGIC: Denies numbness, tingling or weakness. ENDOCRINE: Denies fatigue, weight change, polydipsia or polyurina. GENITOURINARY: Denies burning, hematuria or urgency with micturation. HEMATOLOGIC: Denies history of anemia or bleeding. PHYSICAL EXAMINATION Vital signs reviewed. CONSTITUTIONAL: No apparent distress. HEENT: Head is normocephalic. Pupils are equal, round. Sclerae anicteric. Mucous membranes of the mouth are moist. No JVD. No carotid bruit. CHEST EXAMINATION: Lungs are clear to auscultation. No chest wall tenderness is noted on palpation or with deep breathing. HEART EXAMINATION: Regular rate and rhythm. S1, S2 heard. No murmurs, gallops or rub. ABDOMEN: Soft, nontender. Positive bowel sounds. EXTREMITIES: 2+ peripheral pulses, no lower extremity edema and no calf tenderness. NEUROLOGIC EXAMINATION: Patient is awake, alert and oriented x3. ASSESSMENT 1. Acute pneumonia 2. Shortness breath related to COPD/pneumonia 3. Mildly elevated troponins, non-STEMI type II related to pneumonia 4. CAD with history of ACID TANK CLEANER circumflex well collateralized, asymptomatic 5. Previous tobacco abuse quit 1 month ago 6. Hyperlipidemia, family history of CAD PLAN Patient never followed up after prior heart catheterization. Ideally beta yani however she has been hesitant to take medications and currently blood pressure is borderline. Discussed recommendations for aspirin and high intensity statin and patient is agreeable. Past Medical History Past Medical History: COPD, Skin Disorder Additional Past Medical History / Comment(s): WOUND LT LOWER LEG. History of Any Multi-Drug Resistant Organisms: None Reported Past Surgical History: Breast Surgery, Cholecystectomy, Tubal Ligation Additional Past Surgical History / Comment(s): BREAST BIOPSIES SHIRIN. SHIRIN CATAR ACTS REMOVED Past Anesthesia/Blood Transfusion Reactions: Family History of Problems w/ Anesthesia, Motion Sickness Additional Past Anesthesia/Blood Transfusion Reaction / Comment(s): SISTER HAD PARALYZED DIAPHRAGM. Past Psychological History: Anxiety, Depression Smoking Status: Former smoker Past Alcohol Use History: None Reported Past Drug Use History: Marijuana - Past Family History Mother Family Medical History: Cancer Father Family Medical History: Myocardial Infarction (MS) Medications and Allergies Home Medications Medication Instructions Recorded Confirmed Type Acetaminophen-Codeine 300-30mg 1 tab PO BID PRN 12/01/21 12/01/21 History [Tylenol w/codeine #3] Albuterol Inhaler [Ventolin Hfa 2 puff INHALATION RT-Q6H PRN 12/01/21 12/01/21 History Inhaler] Allergies Allergy/AdvReac Type Severity Reaction Status Date / Time vancomycin Allergy Rash/Hives Verified 12/01/21 18:15 morphine AdvReac Nausea Verified 12/01/21 18:15 Physical Exam Vitals: Vital Signs Temp Pulse Pulse Resp BP BP Pulse Ox 12/02/21 11:44 98.3 F 87 99/64 95 12/02/21 11:39 84 12/02/21 11:26 84 12/02/21 08:08 82 12/02/21 07:57 97.8 F 99 16 99/61 97 12/02/21 07:55 80 12/02/21 03:44 97.8 F 100 22 113/74 95 12/01/21 23:41 97.8 F 98 18 108/68 100 12/01/21 21:48 107/70 12/01/21 20:55 97.6 F 106 H 22 91/60 97 12/01/21 19:54 110 H 18 123/60 97 12/01/21 17:55 109 H 20 117/66 96 12/01/21 17:30 115 H 12/01/21 17:19 112 H 12/01/21 16:20 96 12/01/21 16:15 98.3 F 133 H 28 H 110/55 86 L Intake and Output 12/02/21 12/02/21 12/02/21 06:59 14:59 22:59 Intake Total 490 Balance 490 Intake: Intake, IV Titration 250 Amount Azithromycin 500 mg In 250 Sodium Chloride 0.9% 250 ml @ 250 mls/hr IVPB ONCE STA Rx#:[id number] Oral 240 Other: # Voids 2 1 Weight 64.5 kg Results 12/02/21 07:31 12/02/21 07:31 Cardiac Enzymes 12/01/21 12/01/21 12/01/21 Range/Units 16:52 16:52 20:12 AST 18 (14-36) U/L Troponin I 0.050 H* 0.036 H* (0.000-0.034) ng/mL 12/01/21 Range/Units 22:27 AST (14-36) U/L Troponin I 0.020 (0.000-0.034) ng/mL Coagulation 12/01/21 Range/Units 16:52 PT 10.3 (9.0-12.0) sec APTT 23.6 (22.0-30.0) sec CBC 12/01/21 12/02/21 Range/Units 16:52 07:31 WBC 8.4 7.0 (3.8-10.6) k/uL RBC 4.70 4.97 (3.80-5.40) m/uL Hgb 15.0 15.7 (11.4-16.0) gm/dL Hct 46.2 H 50.0 H (34.0-46.0) % Plt Count 278 282 (150-450) k/uL Comprehensive Metabolic Panel 12/01/21 12/02/21 Range/Units 16:52 07:31 Sodium 138 141 (137-145) mmol/L Potassium 4.0 5.1 (3.5-5.1) mmol/L Chloride 102 101 (98-107) mmol/L Carbon Dioxide 30 33 H (22-30) mmol/L BUN 12 14 (7-17) mg/dL Creatinine 0.56 0.45 L (0.52-1.04) mg/dL Glucose 141 H 153 H (74-99) mg/dL Calcium 9.0 8.9 (8.4-10.2) mg/dL AST 18 (14-36) U/L ALT 18 (4-34) U/L Alkaline Phosphatase 109 (38-126) U/L Total Protein 6.7 (6.3-8.2) g/dL Albumin 3.6 (3.5-5.0) g/dL Current Medications Generic Name Dose Route Start Last Admin Trade Name Freq PRN Reason Stop Dose Admin Acetaminophen 650 mg 12/01/21 19:09 12/02/21 08:58 Acetaminophen Tab 325 Mg Tab PO 650 mg Q6HR PRN Administration Mild Pain or Fever > 100.5 Acetaminophen/Codeine Phosphate 1 each 12/01/21 22:28 Acetaminophen-Codeine 300-30mg Tab PO BID PRN Pain Albuterol/Ipratropium 3 ml 12/01/21 20:00 12/02/21 11:26 Ipratropium-Albuterol 3 Ml Neb INHALATION 3 ml RT-QID RAFFAELE Administration Albuterol/Ipratropium 3 ml 12/01/21 19:35 Ipratropium-Albuterol 3 Ml Neb INHALATION RT-Q2H PRN Shortness Of Breath Or Wheezing Azithromycin 500 mg 12/02/21 11:00 12/02/21 11:32 Azithromycin 500 Mg Tab PO 12/04/21 09:01 500 mg DAILY RAFFAELE Administration Protocol Ceftriaxone Sodium 1 gm/ 50 mls @ 100 mls/hr 12/02/21 12:00 12/02/21 11:33 Sodium Chloride IVPB 100 mls/hr Q24H RAFFAELE Administration Protocol Ibuprofen 400 mg 12/01/21 19:09 12/02/21 08:58 Ibuprofen 400 Mg Tab PO 400 mg Q6HR PRN Administration Mild Pain or Fever > 100.5 Methylprednisolone Sodium Succinate 40 mg 12/02/21 00:00 12/02/21 08:59 Methylprednisolone Sod Succi 40 Mg/Ml 1 Ml Vial IV 40 mg Q8HR RAFFAELE Administration Naloxone HCl 0.2 mg 12/01/21 19:09 Naloxone 0.4 Mg/Ml 1 Ml Vial IV Q2M PRN Opioid Reversal Intake and Output 12/02/21 12/02/21 12/02/21 06:59 14:59 22:59 Intake Total 490 Balance 490 Intake: Intake, IV Titration 250 Amount Azithromycin 500 mg In 250 Sodium Chloride 0.9% 250 ml @ 250 mls/hr IVPB ONCE STA Rx#:[id number] Oral 240 Other: # Voids 2 1 Weight 64.5 kg 12/02/21 07:31 12/02/21 07:31
[2021-12-02] MEDS: ATORVASTATIN 40 MG TAB PO SCH (16:34)
[2021-12-02] MEDS: ASPIRIN 81 MG PO SCH (16:34)
[2021-12-02 16:48] LABS: Glucose,Whole Blood 157 mg/dL (70-110)
[2021-12-02 20:01] LABS: Glucose,Whole Blood 163 mg/dL (70-110)
[2021-12-03] MEDS: methylPREDNISolone SOD SUCCI 40 MG/ML 1 ML VIAL IV SCH ×4 (00:15→22:56)
[2021-12-03 06:20] LABS: Glucose,Whole Blood 178 mg/dL (70-110)
[2021-12-03 07:41] LABS: Basophils % (A) 0 %; Eosinophils % (A) 0 %; HCT 48.6 % (34.0-46.0); HGB 14.9 gm/dL (11.4-16.0); Hypochromasia Marked; Lymphocytes # (A) 0.9 k/uL (1.0-4.8); Lymphocytes % (A) 7 %; MCH 30.8 pg (25.0-35.0); MCHC 30.6 g/dL (31.0-37.0); MCV 100.6 fL (80.0-100.0); Mean Platelet Volume 7.6; Monocytes # (A) 0.5 k/uL (0-1.0); Monocytes % (A) 4 %; Neutrophils % (A) 87 %; Platelet Count 316 k/uL (150-450); RBC 4.83 m/uL (3.80-5.40); RDW 13.4 % (11.5-15.5); WBC 12.7 k/uL (3.8-10.6)
[2021-12-03 08:00] LABS: African American GFR (CKD) >90 (>60 ml/min/1.73 sqM); Anion Gap 5 mmol/L; Blood Urea Nitrogen 19 mg/dL (7-17); Carbon Dioxide 36 mmol/L (22-30); Chloride 99 mmol/L (98-107); Glucose 155 mg/dL (74-99); Non-African American GFR(CKD) >90 (>60 ml/min/1.73 sqM); Potassium 5.6 mmol/L (3.5-5.1); Sodium 140 mmol/L (137-145)
[2021-12-03] MEDS: IPRATROPIUM-ALBUTEROL 3 ML NEB INHALATION SCH ×4 (08:59→20:11)
[2021-12-03] MEDS: ASPIRIN 81 MG PO SCH (09:04)
[2021-12-03] MEDS: AZITHROMYCIN 500 MG TAB PO SCH (09:05)
[2021-12-03] MEDS: ATORVASTATIN 40 MG TAB PO SCH (09:05)
[2021-12-03] MEDS: ACETAMINOPHEN TAB 325 MG TAB PO PRN (09:08)
[2021-12-03 11:52] LABS: Glucose,Whole Blood 157 mg/dL (70-110)
--- NOTE | 2021-12-03 12:36 | P.PN ---
Subjective Progress Note Date: 12/03/21 Principal diagnosis: Shortness of breath, cough 51-year-old white female patient with past medical history of COPD, former smoker, anxiety, depression, coronary artery disease without stenting who presented to the emergency department on 12/01/2021 with 4 day history of worsening shortness of breath. Her shortness of breath was mainly exertional, she reports cough and some green sputum production. She denies any sick contacts, she denies any chest discomfort, no fever or chills. Patient has been using her inhaler and nebulizer at home without any improvement. Chest x-ray in the emergency department showed mild interstitial pneumonia in the lower shaw. Patient tested negative for COVID-19, influenza A and B, white blood cell count was normal at 8.4, hemoglobin was 15.0, coagulation profile was unremarkable, electrolyte and renal profile were within normal limits, patient had a mild troponin leak at 0.050, 0.036, and 0.020, proBNP was 1430. Her pro-calcitonin level resulted at 0.23. Patient was started on empiric antibiotics with azithromycin and Rocephin in the emergency department, she was placed on breathing treatments and IV steroids. She is satting 95% on 3 L, she is afebrile with stable vital signs. CTA chest showed no evidence of pulmonary emb olism, no aortic aneurysm or dissection, patchy reticular nodular pulmonary infiltrates. On 12/03/2021 patient seen in follow-up on selective care unit, she is awake alert, in no acute distress, sitting up in the bed, she states she is feeling better, she started to cough up some thick yellow colored phlegm, sputum culture has been sent. Denies any hemoptysis, remains on azithromycin and Rocephin. Remains on IV steroids and nebulized bronchodilators. No acute issues overnight. Objective - Vital Signs Vital signs: Vital Signs Temp 98.2 F 12/03/21 12:15 Pulse 82 12/03/21 12:15 Resp 18 12/03/21 12:15 BP 118/66 12/03/21 12:15 Pulse Ox 100 12/03/21 09:00 FiO2 Intake & Output 12/02/21 12/03/21 12/03/21 18:59 06:59 18:59 Output Total 0 Balance 0 Output: Urine 0 Other: # Voids 1 - Exam GENERAL EXAM: Alert, very pleasant, 51-year-old white female, on 3 L of oxygen pulse ox is 97% comfortable in no apparent distress. HEAD: Normocephalic/atraumatic. EYES: Normal reaction of pupils, equal size. Conjunctiva pink, sclera white. NOSE: Clear with pink turbinates. THROAT: No erythema or exudates. NECK: No masses, no JVD, no thyroid enlargement, no adenopathy. CHEST: No chest wall deformity. Symmetrical expansion. LUNGS: Equal air entry with diffuse rhonchi CVS: Regular rate and rhythm, normal S1 and S2, no gallops, no murmurs, no rubs ABDOMEN: Soft, nontender. No hepatosplenomegaly, normal bowel sounds, no guarding or rigidity. EXTREMITIES: No clubbing, no edema, no cyanosis, 2+ pulses and upper and lower extremities. MUSCULOSKELETAL: Muscle strength and tone normal. SPINE: No scoliosis or deformity SKIN: No rashes CENTRAL NERVOUS SYSTEM: Alert and oriented -3. No focal deficits, tone is normal in all 4 extremities. PSYCHIATRIC: Alert and oriented -3. Appropriate affect. Intact judgment and insight. - Labs CBC & Chem 7: 12/03/21 07:05 12/03/21 07:05 Labs: Abnormal Lab Results - Last 24 Hours (Table) 12/02/21 12/02/21 12/03/21 Range/Units 16:47 20:00 06:19 WBC (3.8-10.6) k/uL Hct (34.0-46.0) % MCV (80.0-100.0) fL MCHC (31.0-37.0) g/dL Neutrophils # (1.3-7.7) k/uL Lymphocytes # (1.0-4.8) k/uL Potassium (3.5-5.1) mmol/L Carbon Dioxide (22-30) mmol/L BUN (7-17) mg/dL Creatinine (0.52-1.04) mg/dL Glucose (74-99) mg/dL POC Glucose (mg/dL) 157 H 163 H 178 H (70-110) mg/dL 12/03/21 12/03/21 12/03/21 Range/Units 07:05 07:05 11:50 WBC 12.7 H (3.8-10.6) k/uL Hct 48.6 H (34.0-46.0) % MCV 100.6 H (80.0-100.0) fL MCHC 30.6 L (31.0-37.0) g/dL Neutrophils # 11.0 H (1.3-7.7) k/uL Lymphocytes # 0.9 L (1.0-4.8) k/uL Potassium 5.6 H (3.5-5.1) mmol/L Carbon Dioxide 36 H (22-30) mmol/L BUN 19 H (7-17) mg/dL Creatinine 0.49 L (0.52-1.04) mg/dL Glucose 155 H (74-99) mg/dL POC Glucose (mg/dL) 157 H (70-110) mg/dL Microbiology - Last 24 Hours (Table) 12/02/21 12:57 Gram Stain - Preliminary Sputum Sputum Culture - Preliminary 12/01/21 19:27 Blood Culture - Preliminary Blood No Growth after 24 hours 12/01/21 19:33 Blood Culture - Preliminary Blood No Growth after 24 hours Assessment and Plan Plan: Assessment: #1. Acute on chronic dyspnea possibly related to acute community acquired pneumonia or acute pneumonitis, chest x-ray showing mild interstitial pneumonia, CTA chest showed patchy reticular nodular pulmonary infiltrates. COVID-19, influenza A and B were negative. Pulmonary embolism was ruled out #2. Mild troponin leak, CTA chest showed no evidence of pulmonary embolism #3. Chronic hypoxic respiratory failure on home oxygen #4. History of advanced COPD #5. Anxiety/depression #6. Former smoker #7. History of coronary artery disease Plan: Continue current antibiotics We'll await sputum culture Legionella urine antigen was negative Continue nebulized bronchodilators and IV steroids Cardiology recommendations We'll continue to follow I have personally seen and examined the patient, performed the documentation and the assessment and plan as written. Number of minutes spent on the visit: [10] Time with Patient: Less than 30
--- NOTE | 2021-12-03 14:02 | CA ---
Transthoracic Echo Report Name: Yesy Pearl Age: 51 Gender: F : 1970 Exam Date: 12/03/2021 10:44 Exam Location: [place] [facility] Ht (in): 51 Wt (lb): 142 Ordering Physician: Reema Narvaez Attending/Referring Phys: Booster Assembler Edie Blackwell RDCS Procedure CPT: Indications: LV function, elevated troponin Cardiac Hx: No cardiac hx Technical Quality: Good Contrast 1: Total Dose (mL): Contrast 2: Total Dose (mL): MEASUREMENTS (Male / Female) Normal Values 2D ECHO LV Diastolic Diameter PLAX 3.7 cm 4.2 - 5.9 / 3.9 - 5.3 cm LV Systolic Diameter PLAX 1.7 cm IVS Diastolic Thickness 1.2 cm 0.6 - 1.0 / 0.6 - 0.9 cm LVPW Diastolic Thickness 1.4 cm 0.6 - 1.0 / 0.6 - 0.9 cm LV Relative Wall Thickness 0.7 RV Internal Dim ED PLAX 2.1 cm LA Volume 26.1 cm??? 18 - 58 / 22 - 52 cm??? M-MODE Aortic Root Diameter MM 3.0 cm LA Systolic Diameter MM 2.3 cm LA Ao Ratio MM 0.8 MV E Point Septal Separation 0.6 cm AV Cusp Separation MM 1.5 cm DOPPLER AV Peak Velocity 157.7 cm/s AV Peak Gradient 10.0 mmHg MV Area PHT 5.4 cm??? MR Peak Velocity 124.1 cm/s MR Peak Gradient 6.2 mmHg Mitral E Point Velocity 105.5 cm/s Mitral A Point Velocity 120.0 cm/s Mitral E to A Ratio 0.9 MV Deceleration Time 141.5 ms MV E' Velocity 6.4 cm/s Mitral E to MV E' Ratio 16.4 TR Peak Velocity 176.1 cm/s TR Peak Gradient 12.4 mmHg Right Ventricular Systolic Press 16.1 mmHg FINDINGS Left Ventricle Mildly increased septal wall thickness. Moderately increased posterior wall thickness. Left ventricular ejection fraction is estimated at 55-60 %. Left ventricular cavity size normal. Grade 1 diastolic dysfunction. Right Ventricle The right ventricle is normal in size and function. Right Atrium The right atrium is normal in size. Left Atrium The left atrium is normal in size. Mitral Valve Structurally normal mitral valve without significant stenosis or prolapse. There is mild mitral regurgitation. Aortic Valve Structurally normal aortic valve without significant sclerosis or stenosis. There is no aortic regurgitation. Tricuspid Valve Structurally normal tricuspid valve without significant stenosis. Pulmonary artery systolic pressure is normal. Mild tricuspid regurgitation. Pulmonic Valve Structurally normal pulmonic valve without significant stenosis. There is no pulmonic regurgitation. Pericardium Normal pericardium without effusion. Aorta Normal aortic root dimension. CONCLUSIONS LVH with preserved systolic function Previewed by: Dr. Rhys Modi MD (Electronically Signed) Final Date: 03 December 2021 14:01
--- NOTE | 2021-12-03 14:05 | P.PN ---
Subjective Patient is pleasant 51-year-old female with history of prior tobacco abuse quit 1 month ago, COPD, CAD with CT of the circumflex as well as moderate disease of the RCA, hyperlipidemia, family history of CAD who presents secondary to shortness breath. Patient previously was followed with Dr. Leal once and had heart catheterization however never followed up after that. She has been having increased shortness breath as well as cough over last 4 days and admits her daughter also has had a cough. Denies any chest pain or pressure. Denies any l ightheadedness or dizziness. She did have heart catheterization 02/08/2021 which showed 40% RCA stenosis, BAND SPLITTER of the circumflex with extensive collaterals and only mild disease of the LAD. EKG shows sinus rhythm with normal axis. Chest CTA showed no PE, patchy infiltrates consistent with inflammatory disease. Troponin noted the 0.05, 0.03, 0.02. 12/03/2021 Patient seen and examined at bedside, no distress. She denies any chest pain. She continues to have shortness of breath and cough. She currently maintain on Aspirin, statin, Azithromycin and IV Rocephin and IV steriods Pressure 118/66, heart rate 82, afebrile, oxygen saturation is 92% on 3 L nasal cannula PHYSICAL EXAMINATION Vital signs reviewed. CONSTITUTIONAL: No apparent distress. HEENT: Head is normocephalic. No JVD. No carotid bruit. CHEST EXAMINATION: Lungs are rhonchi bilaterally to auscultation. No chest wall tenderness is noted on palpation or with deep breathing. HEART EXAMINATION: Regular rate and rhythm. S1, S2 heard. No murmurs, gallops or rub. ABDOMEN: Soft, nontender. Positive bowel sounds. EXTREMITIES: 2+ peripheral pulses, no lower extremity edema and no calf tenderness. NEUROLOGIC EXAMINATION: Patient is awake, alert and oriented x3. ASSESSMENT Acute pneumonia Shortness breath related to COPD/pneumonia Mildly elevated troponins, non-STEMI type II related to pneumonia and hypoxia CAD with history of BAND SPLITTER circumflex well collateralized, asymptomatic Previous tobacco abuse quit 1 month ago Hyperlipidemia, family history of CAD PLAN Echocardiogram revealed EF 5560 percent, grade 1 diastolic dysfunction, mildly increased wall thickness, mild mitral regurgitation, mild tricuspid regurgitation. No further inpatient workup from a cardiology perspective. Continue aspirin and statin. Pulmonary following Recommend following up as an outpatient with Dr. Leal in the office in 1-2 weeks. We will follow the patient has he ate, please reconsult if needed. Nurse practitioner note has been reviewed by physician. Signing provider agrees with the documented findings, assessment, and plan of care. Objective - Vital Signs Vital signs: Vital Signs Temp 98.2 F 12/03/21 12:15 Pulse 82 12/03/21 12:15 Resp 18 12/03/21 12:15 BP 118/66 12/03/21 12:15 Pulse Ox 92 L 12/03/21 12:15 FiO2 Intake & Output 12/02/21 12/03/21 12/03/21 18:59 06:59 18:59 Output Total 0 Balance 0 Output: Urine 0 Other: # Voids 1 - Labs CBC & Chem 7: 12/03/21 07:05 12/03/21 07:05 Labs: Abnormal Lab Results - Last 24 Hours (Table) 12/02/21 12/02/21 12/03/21 Range/Units 16:47 20:00 06:19 WBC (3.8-10.6) k/uL Hct (34.0-46.0) % MCV (80.0-100.0) fL MCHC (31.0-37.0) g/dL Neutrophils # (1.3-7.7) k/uL Lymphocytes # (1.0-4.8) k/uL Potassium (3.5-5.1) mmol/L Carbon Dioxide (22-30) mmol/L BUN (7-17) mg/dL Creatinine (0.52-1.04) mg/dL Glucose (74-99) mg/dL POC Glucose (mg/dL) 157 H 163 H 178 H (70-110) mg/dL 12/03/21 12/03/21 12/03/21 Range/Units 07:05 07:05 11:50 WBC 12.7 H (3.8-10.6) k/uL Hct 48.6 H (34.0-46.0) % MCV 100.6 H (80.0-100.0) fL MCHC 30.6 L (31.0-37.0) g/dL Neutrophils # 11.0 H (1.3-7.7) k/uL Lymphocytes # 0.9 L (1.0-4.8) k/uL Potassium 5.6 H (3.5-5.1) mmol/L Carbon Dioxide 36 H (22-30) mmol/L BUN 19 H (7-17) mg/dL Creatinine 0.49 L (0.52-1.04) mg/dL Glucose 155 H (74-99) mg/dL POC Glucose (mg/dL) 157 H (70-110) mg/dL Microbiology - Last 24 Hours (Table) 12/02/21 12:57 Gram Stain - Preliminary Sputum Sputum Culture - Preliminary 12/01/21 19:27 Blood Culture - Preliminary Blood No Growth after 24 hours 12/01/21 19:33 Blood Culture - Preliminary Blood No Growth after 24 hours
[2021-12-03 16:38] LABS: Glucose,Whole Blood 159 mg/dL (70-110)
--- NOTE | 2021-12-03 18:16 | P.PN ---
Subjective Progress Note Date: 12/03/21 On 12/03/2021 patient was seen and examined on the medical floor, she is alert and oriented 3 in no apparent distress she is still complaining of cough and shortness of breath otherwise she denies any complaints there is no fever or chills no headache or dizziness no chest pain no nausea or vomiting no abdominal pain no diarrhea and no urinary symptoms Objective - Vital Signs Vital signs: Vital Signs Temp 98.2 F 12/03/21 12:15 Pulse 88 12/03/21 16:22 Resp 18 12/03/21 12:15 BP 118/66 12/03/21 12:15 Pulse Ox 92 L 12/03/21 12:15 FiO2 Intake & Output 12/02/21 12/03/21 12/03/21 18:59 06:59 18:59 Output Total 0 Balance 0 Output: Urine 0 Other: # Voids 1 1 - Exam In general patient is alert and oriented x 3 in no distress HEENT head normocephalic and atraumatic Neck is supple no JVD no goiter no lymphadenopathy no carotid bruit Chest examination reveals a scattered crackles in both lung shaw no wheezing Cardiac exam reveals regular heart sounds S1 and S2 no gallops no murmurs Abdomen is soft nontender no organomegaly with normal bowel sounds Extremity exam reveals no edema no cyanosis or clubbing Neurological examination reveals no gross focal deficits - Labs CBC & Chem 7: 12/03/21 07:05 12/03/21 07:05 Labs: Abnormal Lab Results - Last 24 Hours (Table) 12/02/21 12/03/21 12/03/21 Range/Units 20:00 06:19 07:05 WBC 12.7 H (3.8-10.6) k/uL Hct 48.6 H (34.0-46.0) % MCV 100.6 H (80.0-100.0) fL MCHC 30.6 L (31.0-37.0) g/dL Neutrophils # 11.0 H (1.3-7.7) k/uL Lymphocytes # 0.9 L (1.0-4.8) k/uL Potassium (3.5-5.1) mmol/L Carbon Dioxide (22-30) mmol/L BUN (7-17) mg/dL Creatinine (0.52-1.04) mg/dL Glucose (74-99) mg/dL POC Glucose (mg/dL) 163 H 178 H (70-110) mg/dL 12/03/21 12/03/21 12/03/21 Range/Units 07:05 11:50 16:37 WBC (3.8-10.6) k/uL Hct (34.0-46.0) % MCV (80.0-100.0) fL MCHC (31.0-37.0) g/dL Neutrophils # (1.3-7.7) k/uL Lymphocytes # (1.0-4.8) k/uL Potassium 5.6 H (3.5-5.1) mmol/L Carbon Dioxide 36 H (22-30) mmol/L BUN 19 H (7-17) mg/dL Creatinine 0.49 L (0.52-1.04) mg/dL Glucose 155 H (74-99) mg/dL POC Glucose (mg/dL) 157 H 159 H (70-110) mg/dL Microbiology - Last 24 Hours (Table) 12/02/21 12:57 Gram Stain - Preliminary Sputum Sputum Culture - Preliminary 12/01/21 19:27 Blood Culture - Preliminary Blood No Growth after 24 hours 12/01/21 19:33 Blood Culture - Preliminary Blood No Growth after 24 hours Assessment and Plan Plan: Acute community-acquired pneumonia Acute exacerbation of chronic obstructive pulmonary disease Acute on chronic hypoxic respiratory failure maintained on home oxygen Mild troponin leak, Underlying history of depression with anxiety Underlying history of coronary artery disease Previous history of smoking At this time patient is improving she is alert and oriented 3 in no distress she is maintained on IV antibiotics sputum sample taken for culture results are still pending Medication and labs were reviewed input from pulmonary and cardiology reviewed will follow closely
[2021-12-03 20:41] LABS: Glucose,Whole Blood 249 mg/dL (70-110)
[2021-12-03] MEDS: INSULIN ASPART (NovoLOG) 100 UNIT/ML VIAL SQ SCH (21:02)
[2021-12-04 05:52] LABS: Glucose,Whole Blood 130 mg/dL (70-110)
[2021-12-04] MEDS: INSULIN ASPART (NovoLOG) 100 UNIT/ML VIAL SQ SCH ×4 (06:39→20:45)
[2021-12-04] MEDS: IPRATROPIUM-ALBUTEROL 3 ML NEB INHALATION SCH ×4 (07:58→21:51)
[2021-12-04 08:04] LABS: Basophils % (A) 0 %; Eosinophils # (A) 0.1 k/uL (0-0.7); Eosinophils % (A) 0 %; HCT 49.7 % (34.0-46.0); HGB 15.3 gm/dL (11.4-16.0); Hypochromasia Marked; Lymphocytes # (A) 1.4 k/uL (1.0-4.8); Lymphocytes % (A) 8 %; MCH 30.9 pg (25.0-35.0); MCHC 30.7 g/dL (31.0-37.0); MCV 100.6 fL (80.0-100.0); Monocytes # (A) 0.5 k/uL (0-1.0); Monocytes % (A) 3 %; Neutrophils # (A) 14.7 k/uL (1.3-7.7); Neutrophils % (A) 87 %; Platelet Count 338 k/uL (150-450); RBC 4.94 m/uL (3.80-5.40); RDW 13.5 % (11.5-15.5); WBC 16.9 k/uL (3.8-10.6)
[2021-12-04 08:32] LABS: ALT 26 U/L (4-34); AST 23 U/L (14-36); African American GFR (CKD) >90 (>60 ml/min/1.73 sqM); Albumin 3.8 g/dL (3.5-5.0); Alkaline Phosphatase 97 U/L (38-126); Anion Gap 5 mmol/L; Blood Urea Nitrogen 21 mg/dL (7-17); Calcium 9.3 mg/dL (8.4-10.2); Carbon Dioxide 39 mmol/L (22-30); Chloride 97 mmol/L (98-107); Glucose 137 mg/dL (74-99); Non-African American GFR(CKD) >90 (>60 ml/min/1.73 sqM); Sodium 141 mmol/L (137-145); Total Bilirubin 0.1 mg/dL (0.2-1.3); Total Protein 7.2 g/dL (6.3-8.2)
[2021-12-04] MEDS: ASPIRIN 81 MG PO SCH (09:44)
[2021-12-04] MEDS: ACETAMINOPHEN TAB 325 MG TAB PO PRN (09:44)
[2021-12-04] MEDS: methylPREDNISolone SOD SUCCI 40 MG/ML 1 ML VIAL IV SCH ×3 (09:44→23:52)
[2021-12-04] MEDS: ATORVASTATIN 40 MG TAB PO SCH (09:45)
[2021-12-04] MEDS: AZITHROMYCIN 500 MG TAB PO SCH (09:45)
[2021-12-04 11:52] LABS: Glucose,Whole Blood 124 mg/dL (70-110)
--- NOTE | 2021-12-04 13:52 | P.PN ---
Subjective Progress Note Date: 12/04/21 Principal diagnosis: Shortness of breath. 51-year-old white female patient with past medical history of COPD, former smoker, anxiety, depression, coronary artery disease without stenting who presented to the emergency department on 12/01/2021 with 4 day history of worsening shortness of breath. Her shortness of breath was mainly exertional, she reports cough and some green sputum production. She denies any sick contacts, she denies any chest discomfort, no fever or chills. Patient has been using her inhaler and nebulizer at home without any improvement. Chest x-ray in the emergency department showed mild interstitial pneumonia in the lower shaw. Patient tested negative for COVID-19, influenza A and B, white blood cell count was normal at 8.4, hemoglobin was 15.0, coagulation profile was unremarkable, electrolyte and renal profile were within normal limits, patient had a mild troponin leak at 0.050, 0.036, and 0.020, proBNP was 1430. Her pro-calcitonin level resulted at 0.23. Patient was started on empiric antibiotics with azithromycin and Rocephin in the emergency department, she was placed on breathing treatments and IV steroids. She is satting 95% on 3 L, she is afebrile with stable vital signs. CTA chest showed no evidence of pulmonary embolism, no aortic aneurysm or dissection, patchy reticular nodular pulmonary infiltrates. On 12/03/2021 patient seen in follow-up on selective care unit, she is awake alert, in no acute distress, sitting up in the bed, she states she is feeling better, she started to cough up some thick yellow colored phlegm, sputum culture has been sent. Denies any hemoptysis, remains on azithromycin and Rocephin. Re monty on IV steroids and nebulized bronchodilators. No acute issues overnight. Progress note dated 12/04/2021. 51-year-old female seen in room 380. The patient appears to be doing better. She is much less short of breath. She does cough up phlegm from time to time. She remains on corticosteroids, and breathing treatments. Laboratory data includes a white count of 16.9, hemoglobin 15.3, hematocrit 49.7, and a platelet count of 338,000. Note 141, potassium 5, chlorides 97, CO2 39, BUN 21, creatinine 0.57. No new chest x-ray today. Microbiologic studies are negative. Objective - Vital Signs Vital signs: Vital Signs Temp 98.3 F 12/04/21 12:55 Pulse 91 12/04/21 12:55 Resp 18 12/04/21 12:55 BP 113/72 12/04/21 12:55 Pulse Ox 97 12/04/21 12:55 FiO2 Intake & Output 12/03/21 12/04/21 12/04/21 18:59 06:59 18:59 Intake Total 50 240 Balance 50 240 Intake: Intake, IV Titration 50 Amount cefTRIAXone 1 gm In 50 Sodium Chloride 0.9% 50 ml @ 100 mls/hr IVPB Q24H [facility] Rx#:[id number] Oral 240 Other: # Voids 1 1 - Exam No acute distress, oriented 3. Currently on 3 L with a saturation of 97%. No conversational dyspnea or use of accessory muscles. HEENT examination is grossly unremarkable. Neck supple. Full range of motion. No adenopathy thyromegaly or neck vein distention. Cardiovascular examination reveals regular rhythm rate. S1-S2 normal. No S3 or S4. No discernible murmur noted. Heart rate 91 bpm. Lungs reveal mostly clear breath sounds. Scattered rhonchi and wheezes are appreciated. No crackles. Breath sounds are equal bilaterally. Saturations are 97%. Abdomen soft, with bowel sounds. No masses or tenderness. Extremities are intact. No cyanosis clubbing or edema. Skin is without rash or lesion. Neurologic examination is brief but nonfocal. - Labs CBC & Chem 7: 12/04/21 07:51 12/04/21 07:51 Labs: Abnormal Lab Results - Last 24 Hours (Table) 12/03/21 12/03/21 12/04/21 Range/Units 16:37 20:40 05:48 WBC (3.8-10.6) k/uL Hct (34.0-46.0) % MCV (80.0-100.0) fL MCHC (31.0-37.0) g/dL Neutrophils # (1.3-7.7) k/uL Chloride (98-107) mmol/L Carbon Dioxide (22-30) mmol/L BUN (7-17) mg/dL Glucose (74-99) mg/dL POC Glucose (mg/dL) 159 H 249 H 130 H (70-110) mg/dL Total Bilirubin (0.2-1.3) mg/dL 12/04/21 12/04/21 12/04/21 Range/Units 07:51 07:51 11:51 WBC 16.9 H (3.8-10.6) k/uL Hct 49.7 H (34.0-46.0) % MCV 100.6 H (80.0-100.0) fL MCHC 30.7 L (31.0-37.0) g/dL Neutrophils # 14.7 H (1.3-7.7) k/uL Chloride 97 L (98-107) mmol/L Carbon Dioxide 39 H (22-30) mmol/L BUN 21 H (7-17) mg/dL Glucose 137 H (74-99) mg/dL POC Glucose (mg/dL) 124 H (70-110) mg/dL Total Bilirubin 0.1 L (0.2-1.3) mg/dL Microbiology - Last 24 Hours (Table) 12/02/21 12:57 Gram Stain - Final Sputum Sputum Culture - Final 12/01/21 19:27 Blood Culture - Preliminary Blood No Growth after 48 hours 12/01/21 19:33 Blood Culture - Preliminary Blood No Growth after 48 hours Assessment and Plan Assessment: Acute on chronic shortness of breath, possibly related to acute community- acquired pneumonia or acute pneumonitis. No evidence of pulmonary embolism. Mild troponin leak. Chronic hypoxemic respiratory failure, on home O2. History of advanced COPD. Anxiety/depression. He is history of tobacco use. History of CAD. Plan: Plan dated 12/04/2021. The patient remains on Rocephin, as well as Solu-Medrol, and updrafts. Additional recommendations and suggestions are forthcoming. He's hoping to be discharged home in the next 24 hours. The patient's overall prognosis remains guarded. We will continue to follow make recommendations. The patient certainly is improved today compared to the last couple of days. Time with Patient: Less than 30
--- NOTE | 2021-12-04 16:20 | P.PN ---
Subjective Progress Note Date: 12/04/21 On 12/03/2021 patient was seen and examined on the medical floor, she is alert and oriented 3 in no apparent distress she is still complaining of cough and shortness of breath otherwise she denies any complaints there is no fever or chills no headache or dizziness no chest pain no nausea or vomiting no abdominal pain no diarrhea and no urinary symptoms On 12/04/2021 patient was seen and examined on the medical floor she is alert and oriented 3 in no apparent distress she is complaining of headache she is still having cough and shortness of breath otherwise she denies any complaints there is no fever or chills no dizziness no chest pain no nausea or vomiting no abdominal pain no diarrhea no blood in the stools no burning with urination no frequency or urgency no hematuria, patient is improving gradually, possible discharge to home in the next 1-2 days Objective - Vital Signs Vital signs: Vital Signs Temp 98.3 F 12/04/21 12:55 Pulse 91 12/04/21 12:55 Resp 18 12/04/21 12:55 BP 113/72 12/04/21 12:55 Pulse Ox 97 12/04/21 12:55 FiO2 Intake & Output 12/03/21 12/04/21 12/04/21 18:59 06:59 18:59 Intake Total 50 240 Balance 50 240 Intake: Intake, IV Titration 50 Amount cefTRIAXone 1 gm In 50 Sodium Chloride 0.9% 50 ml @ 100 mls/hr IVPB Q24H [facility] Rx#:[id number] Oral 240 Other: # Voids 1 1 - Exam In general patient is alert and oriented x 3 in no distress HEENT head normocephalic and atraumatic Neck is supple no JVD no goiter no lymphadenopathy no carotid bruit Chest examination reveals a scattered crackles in both lung shaw no wheezing Cardiac exam reveals regular heart sounds S1 and S2 no gallops no murmurs Abdomen is soft nontender no organomegaly with normal bowel sounds Extremity exam reveals no edema no cyanosis or clubbing Neurological examination reveals no gross focal deficits - Labs CBC & Chem 7: 12/04/21 07:51 12/04/21 07:51 Labs: Abnormal Lab Results - Last 24 Hours (Table) 12/03/21 12/03/21 12/04/21 Range/Units 16:37 20:40 05:48 WBC (3.8-10.6) k/uL Hct (34.0-46.0) % MCV (80.0-100.0) fL MCHC (31.0-37.0) g/dL Neutrophils # (1.3-7.7) k/uL Chloride (98-107) mmol/L Carbon Dioxide (22-30) mmol/L BUN (7-17) mg/dL Glucose (74-99) mg/dL POC Glucose (mg/dL) 159 H 249 H 130 H (70-110) mg/dL Total Bilirubin (0.2-1.3) mg/dL 12/04/21 12/04/21 12/04/21 Range/Units 07:51 07:51 11:51 WBC 16.9 H (3.8-10.6) k/uL Hct 49.7 H (34.0-46.0) % MCV 100.6 H (80.0-100.0) fL MCHC 30.7 L (31.0-37.0) g/dL Neutrophils # 14.7 H (1.3-7.7) k/uL Chloride 97 L (98-107) mmol/L Carbon Dioxide 39 H (22-30) mmol/L BUN 21 H (7-17) mg/dL Glucose 137 H (74-99) mg/dL POC Glucose (mg/dL) 124 H (70-110) mg/dL Total Bilirubin 0.1 L (0.2-1.3) mg/dL Microbiology - Last 24 Hours (Table) 12/02/21 12:57 Gram Stain - Final Sputum Sputum Culture - Final 12/01/21 19:27 Blood Culture - Preliminary Blood No Growth after 48 hours 12/01/21 19:33 Blood Culture - Preliminary Blood No Growth after 48 hours Assessment and Plan Plan: Acute community-acquired pneumonia Acute exacerbation of chronic obstructive pulmonary disease Acute on chronic hypoxic respiratory failure maintained on home oxygen Mild troponin leak, Underlying history of depression with anxiety Underlying history of coronary artery disease Previous history of smoking At this time patient is improving she is alert and oriented 3 in no distress she is maintained on IV antibiotics sputum sample taken for culture results are still pending Medication and labs were reviewed input from pulmonary and cardiology reviewed will follow closely
[2021-12-04 17:01] LABS: Glucose,Whole Blood 114 mg/dL (70-110)
[2021-12-04 20:23] LABS: Glucose,Whole Blood 175 mg/dL (70-110)
[2021-12-05 06:05] LABS: Glucose,Whole Blood 150 mg/dL (70-110)
[2021-12-05] MEDS: INSULIN ASPART (NovoLOG) 100 UNIT/ML VIAL SQ SCH ×4 (06:05→20:25)
[2021-12-05] MEDS: IPRATROPIUM-ALBUTEROL 3 ML NEB INHALATION SCH ×4 (07:21→19:49)
[2021-12-05] MEDS: ATORVASTATIN 40 MG TAB PO SCH (09:09)
[2021-12-05] MEDS: ASPIRIN 81 MG PO SCH (09:09)
[2021-12-05] MEDS: methylPREDNISolone SOD SUCCI 40 MG/ML 1 ML VIAL IV SCH ×2 (09:09→17:29)
[2021-12-05] MEDS: ACETAMINOPHEN TAB 325 MG TAB PO PRN (09:10)
[2021-12-05 11:45] LABS: Glucose,Whole Blood 160 mg/dL (70-110)
--- NOTE | 2021-12-05 12:25 | P.PN ---
Subjective Progress Note Date: 12/05/21 Principal diagnosis: Shortness of breath. 51-year-old white female patient with past medical history of COPD, former smoker, anxiety, depression, coronary artery disease without stenting who presented to the emergency department on 12/01/2021 with 4 day history of worsening shortness of breath. Her shortness of breath was mainly exertional, she reports cough and some green sputum production. She denies any sick contacts, she denies any chest discomfort, no fever or chills. Patient has been using her inhaler and nebulizer at home without any improvement. Chest x-ray in the emergency department showed mild interstitial pneumonia in the lower shaw. Patient tested negative for COVID-19, influenza A and B, white blood cell count was normal at 8.4, hemoglobin was 15.0, coagulation profile was unremarkable, electrolyte and renal profile were within normal limits, patient had a mild troponin leak at 0.050, 0.036, and 0.020, proBNP was 1430. Her pro-calcitonin level resulted at 0.23. Patient was started on empiric antibiotics with azithromycin and Rocephin in the emergency department, she was placed on breathing treatments and IV steroids. She is satting 95% on 3 L, she is afebrile with stable vital signs. CTA chest showed no evidence of pulmonary embolism, no aortic aneurysm or dissection, patchy reticular nodular pulmonary infiltrates. On 12/03/2021 patient seen in follow-up on selective care unit, she is awake alert, in no acute distress, sitting up in the bed, she states she is feeling better, she started to cough up some thick yellow colored phlegm, sputum culture has been sent. Denies any hemoptysis, remains on azithromycin and Rocephin. Re monty on IV steroids and nebulized bronchodilators. No acute issues overnight. Progress note dated 12/04/2021. 51-year-old female seen in room 380. The patient appears to be doing better. She is much less short of breath. She does cough up phlegm from time to time. She remains on corticosteroids, and breathing treatments. Laboratory data includes a white count of 16.9, hemoglobin 15.3, hematocrit 49.7, and a platelet count of 338,000. Note 141, potassium 5, chlorides 97, CO2 39, BUN 21, creatinine 0.57. No new chest x-ray today. Microbiologic studies are negative. Progress note dated 12/05/2021. 51-year-old female seen in room 380. She is on oxygen at between 2-3 L. She's not receiving any IV fluids. She is hoping to be discharged home soon. The only decision is whether or not she'll need to go home on oxygen therapy. No new labs today. No chest x-ray today. All microbiologic studies are thus far negative. Clinically, she feels much better. She denies any worsening shortness breath, cough, wheezing, or phlegm production. Objective - Vital Signs Vital signs: Vital Signs Temp 97.8 F 12/05/21 12:10 Pulse 88 12/05/21 12:10 Resp 18 12/05/21 12:10 BP 129/76 12/05/21 12:10 Pulse Ox 97 12/05/21 12:10 FiO2 Intake & Output 12/04/21 12/05/21 12/05/21 18:59 06:59 18:59 Intake Total 1490 240 118 Balance 1490 240 118 Intake: Intake, IV Titration 50 Amount cefTRIAXone 1 gm In 50 Sodium Chloride 0.9% 50 ml @ 100 mls/hr IVPB Q24H [facility] Rx#:[id number] Oral 1440 240 118 Other: Voiding Method Toilet # Voids 2 - Exam No acute distress, oriented 3. Currently on 2-3 L with a saturation of 97%. No conversational dyspnea or use of accessory muscles. HEENT examination is grossly unremarkable. Neck supple. Full range of motion. No adenopathy thyromegaly or neck vein distention. Cardiovascular examination reveals regular rhythm rate. S1-S2 normal. No S3 or S4. No discernible murmur noted. Heart rate 84 bpm. Lungs reveal mostly clear breath sounds. Scattered rhonchi and wheezes are appreciated. No crackles. Breath sounds are equal bilaterally. Saturations are 97%. Abdomen soft, with bowel sounds. No masses or tenderness. Extremities are intact. No cyanosis clubbing or edema. Skin is without rash or lesion. Neurologic examination is brief but nonfocal. - Labs CBC & Chem 7: 12/04/21 07:51 12/04/21 07:51 Labs: Abnormal Lab Results - Last 24 Hours (Table) 08/02/22 08/02/22 08/03/22 Range/Units 16:59 20:19 06:00 POC Glucose (mg/dL) 114 H 175 H 150 H (70-110) mg/dL 12/05/21 Range/Units 11:44 POC Glucose (mg/dL) 160 H (70-110) mg/dL Microbiology - Last 24 Hours (Table) 12/01/21 19:27 Blood Culture - Preliminary Blood No Growth after 72 hours 12/01/21 19:33 Blood Culture - Preliminary Blood No Growth after 72 hours 12/02/21 12:57 Gram Stain - Final Sputum Sputum Culture - Final Assessment and Plan Assessment: Acute on chronic shortness of breath, possibly related to acute community-a cquired pneumonia or acute pneumonitis. No evidence of pulmonary embolism. Mild troponin leak. Chronic hypoxemic respiratory failure, on home O2. History of advanced COPD. Anxiety/depression. He is history of tobacco use. History of CAD. Plan: Plan dated 12/04/2021. The patient remains on Rocephin, as well as Solu-Medrol, and updrafts. Additional recommendations and suggestions are forthcoming. He's hoping to be discharged home in the next 24 hours. The patient's overall prognosis remains guarded. We will continue to follow make recommendations. The patient certainly is improved today compared to the last couple of days. Plan dated 12/05/2021. The patient is doing very well. The patient's Solu-Medrol could be converted to prednisone with a taper. The patient is currently on breathing treatments, and Rocephin. All her cultures are thus far negative. The patient could be considered for possible discharge. She probably will need oxygen when she goes home. In testing. Additional recommendations and suggestions are forthcoming. Prognosis is guarded. Time with Patient: Less than 30
--- NOTE | 2021-12-05 13:20 | P.DS ---
Providers Date of admission: 12/01/21 19:09 Expected date of discharge: 12/05/21 Attending physician: Chandni Maurice Consults: 12/01/21 19:09 Consult Physician Urgent Consulting Provider: Dima Zurita Consult Reason/Comments: hypoxic resp failure, aecopd, CAP, elevated trop Do you want consulting provider notified?: Yes 12/01/21 19:35 Consult Physician Urgent Consulting Provider: Edy Lopez Consult Reason/Comments: elevated troponin, h/o CAD Do you want consulting provider notified?: Yes Primary care physician: Chandni Maurice [place] Hospital Course: Diagnosis on discharge: Acute community-acquired pneumonia Acute exacerbation of chronic obstructive pulmonary disease Acute on chronic hypoxic respiratory failure maintained on home oxygen Mild troponin leak, no need for intervention patient seen by cardiology Underlying history of depression with anxiety Underlying history of coronary artery disease Previous history of smoking Hospital course: On 12/03/2021 patient was seen and examined on the medical floor, she is alert and oriented 3 in no apparent distress she is still complaining of cough and sh ortness of breath otherwise she denies any complaints there is no fever or chills no headache or dizziness no chest pain no nausea or vomiting no abdominal pain no diarrhea and no urinary symptoms On 12/04/2021 patient was seen and examined on the medical floor she is alert and oriented 3 in no apparent distress she is complaining of headache she is still having cough and shortness of breath otherwise she denies any complaints there is no fever or chills no dizziness no chest pain no nausea or vomiting no abdominal pain no diarrhea no blood in the stools no burning with urination no frequency or urgency no hematuria, patient is improving gradually, possible discharge to home in the next 1-2 days On 12/05/2021 patient was seen and examined on the medical floor she is alert and oriented 3 in no apparent distress there is no fever or chills no headache or dizziness no chest pain her shortness of breath and cough has improved significantly there is no nausea or vomiting no abdominal pain no diarrhea no blood in the stools no burning with urination no frequency or urgency and no hematuria. She was evaluated by pulmonary and was cleared for discharge, her O2 sat duration on room air is down to 85%, will arrange for home oxygen, patient can be discharged to home today, she was given a prescription for antibiotics Cefdinir and prednisone Patient Condition at Discharge: Stable Plan - Discharge Summary Discharge Rx Participant: No New Discharge Prescriptions: New Cefdinir 300 mg PO Q12HR 7 Days #14 cap Ipratropium-Albuterol Nebulize [Duoneb 0.5 mg-3 mg/3 ml Soln] 3 ml INHALATION RT-QID each predniSONE 0 mg PO DIRECTED 12 Days #30 tab Aspirin 81 mg PO DAILY tab Atorvastatin [Lipitor] 40 mg PO DAILY tab Continue Acetaminophen-Codeine 300-30mg [Tylenol w/codeine #3] 1 tab PO BID PRN PRN Reason: Pain Albuterol Inhaler [Ventolin Hfa Inhaler] 2 puff INHALATION RT-Q6H PRN PRN Reason: Shortness Of Breath Discharge Medication List Acetaminophen-Codeine 300-30mg [Tylenol w/codeine #3] 1 tab PO BID PRN 12/01/21 [History] Albuterol Inhaler [Ventolin Hfa Inhaler] 2 puff INHALATION RT-Q6H PRN 12/01/21 [History] Aspirin 81 mg PO DAILY tab 12/05/21 [Rx] Atorvastatin [Lipitor] 40 mg PO DAILY tab 12/05/21 [Rx] Cefdinir 300 mg PO Q12HR 7 Days #14 cap 12/05/21 [Rx] Ipratropium-Albuterol Nebulize [Duoneb 0.5 mg-3 mg/3 ml Soln] 3 ml INHALATION RT-QID each 12/05/21 [Rx] predniSONE 0 mg PO DIRECTED 12 Days #30 tab 12/05/21 [Rx] Follow up Appointment(s)/Referral(s): Chandni Maurice MD [Primary Care Provider] - 1-2 days Oneil Leal MD [STAFF PHYSICIAN] - 2 Weeks
[2021-12-05 16:57] LABS: Glucose,Whole Blood 169 mg/dL (70-110)
[2021-12-05 20:27] VITALS: BP 130/72; PULSE 98; RESP 18; TEMP 97.8
== END 2021-12-05 20:50 | disposition home or self-care (01) | DRG 193 ==
LOC: EC 16:14 → 3SCARD 19:09
PROVIDERS: ADMIT Internal Medicine; ATTEND Internal Medicine
DX: J18.9 Pneumonia, unspecified organism (principal); I21.A1 Myocardial infarction type 2; J96.21 Acute and chronic respiratory failure with hypoxia; J44.0 Chronic obstructive pulmonary disease with (acute) lower respiratory infection; J44.1 Chronic obstructive pulmonary disease with (acute) exacerbation; I08.1 Rheumatic disorders of both mitral and tricuspid valves; I25.10 Atherosclerotic heart disease of native coronary artery without angina pectoris; R00.0 Tachycardia, unspecified; Z20.822 Contact with and (suspected) exposure to COVID-19; E78.5 Hyperlipidemia, unspecified; F32.A Depression, unspecified; F41.9 Anxiety disorder, unspecified; I25.2 Old myocardial infarction; Z82.49 Family history of ischemic heart disease and other diseases of the circulatory system; Z99.81 Dependence on supplemental oxygen; Z87.891 Personal history of nicotine dependence; Z88.1 Allergy status to other antibiotic agents; Z88.5 Allergy status to narcotic agent; Z98.42 Cataract extraction status, left eye; Z98.41 Cataract extraction status, right eye; Z90.49 Acquired absence of other specified parts of digestive tract; Z98.51 Tubal ligation status
CPT/HCPCS: 36415; 71046; 71275; 80048; 80053; 83605; 83735; 83880; 84145; 84484; 85025; 85610; 85730; 87040; 87070; 87205; 87449; 87502; 87635; 93005; 93306; 94640; 94760; 96365; 96375; 99285

== ENCOUNTER → 2023-10-07 | Outpatient (CLI) | payer OTHER ==
--- NOTE | 2023-10-08 14:38 | MM ---
Reason for Exam: Screening (asymptomatic). Last mammogram was performed 3 year(s) and 0 month(s) ago. Patient History: Menarche at age 13. First Full-Term at age 16. Postmenopausal. Patient has history of breast feeding. 08/07/2006, Bilateral Excisional Biopsy. 1991, Bilateral Benign Excisional Biopsy. Paternal grandmother had ovarian cancer, age 86. Risk Values: Raquel 5 year model risk: 0.8%. NCI Lifetime model risk: 6.7%. Prior Study Comparison: 02/15/2009 Bilateral Diagnostic Mammogram, [facility]. 06/10/2019 Bilateral Screening Mammogram, [facility]. 10/19/2020 Bilateral Screening Mammogram, [facility]. Tissue Density: There are scattered areas of fibroglandular density. Findings: Analyzed By CAD. Right breast: There is no suspicious group of microcalcifications or new suspicious mass. Left breast: There is no suspicious group of microcalcifications or new suspicious mass. Overall Assessment: Negative, BI-RAD 1 Management: Screening Mammogram of both breasts in [address] [facility] will attempt to contact patient to return for supplemental views and ultrasound if indicated. Patient should continue monthly self-breast exams. A clinical breast exam by your physician is recommended on an annual basis. This exam should not preclude additional follow-up of suspicious palpable abnormalities. Note on Raquel scores and lifetime risk: 1. A Raquel score greater than 3% is considered moderate risk. If this is the case, consider specialist referral to assess eligibility for a risk reducing agent. 2. If overall lifetime risk for the development of breast cancer is 20% or higher, the patient may qualify for future screening with alternating mammogram and breast MRI. Electronically signed and approved by: Franck Breen DO
== END | disposition home or self-care (01) ==
LOC: RADMAMWWP 15:58
PROVIDERS: ATTEND Internal Medicine
DX: Z12.31 Encounter for screening mammogram for malignant neoplasm of breast (principal); Z78.0 Asymptomatic menopausal state
CPT/HCPCS: 77063; 77067